=== PATIENT | male | born 1945 | race Two or more races ===

== ENCOUNTER 2020-09-17 03:40 | Inpatient (IN) | payer OTHER, MEDICAID ==
[~2020-09-17] VITALS: Ht 170.2 cm; Wt 92.7 kg
[2020-09-17] MEDS ORDERED: InsuLIN REG 1unit/0.01ml Soln (100units/ml) IV ONE ×2 (04:45→13:00)
[2020-09-17] MEDS ORDERED: methylPREDNISolone SOD SUCC 125 MG/2 ML VL IV ONE (04:45)
[2020-09-17 05:37] LABS: Basophils # (auto) 0 10 ^3/uL (0-0.2); Eosinophils # (auto) 0 10 ^3/uL (0-0.8); Hematocrit 34.4 % (41.0-53.0); Hemoglobin 11.7 g/dL (13.5-17.5); Lymphocytes # (auto) 0.7 10 ^3/uL (0.4-5.4); Lymphocytes % (auto) 3.8 % (10.0-50.0); Mean Corpuscular Hemoglobin 29.7 pg (28.0-32.0); Mean Corpuscular Hgb Conc. 34.1 g/dL (32.0-36.0); Monocytes # (auto) 0.7 10 ^3/uL (0-1.3); Monocytes % (auto) 3.9 % (0.0-12.0); Neutrophils # (auto) 16.3 10 ^3/uL (1.6-8.6); Neutrophils % (auto) 92.3 % (37.0-80.0); Nucleated Red Blood Cells % 0.2 %; Platelet Count (auto) 393 10^3/uL (140-450); Red Blood Cells 3.96 10^6/uL (4.5-5.90); Red Cell Distribution Width 16.7 % (11.8-14.3); White Blood Cell 17.6 10^3/uL (4.4-10.8)
[2020-09-17 05:52] LABS: Calcium 7.9 mg/dL (8.5-10.1); INR 1.01 (0.9-1.15); Partial Thromboplastin Time 33.9 sec (23.0-31.2); Potassium 3.1 mmol/L (3.5-5.1)
[2020-09-17 05:56] LABS: Albumin 1.8 g/dL (3.4-5.0); BUN/Creatinine Ratio 8.9
[2020-09-17 06:01] LABS: Bilirubin, Total 0.5 mg/dL (0.2-1.0); Total Protein 7.2 g/dL (6.4-8.2)
[2020-09-17] MEDS ORDERED: SUCCINYLCHOLINE CHLORIDE 20 MG/ML 10ML VIAL IV ONE ×2 (07:23→08:45)
[2020-09-17] MEDS ORDERED: ETOMIDATE (2MG/ML) 20ML VIAL IV ONE ×2 (07:23→08:45)
[2020-09-17] MEDS ORDERED: MIDAZOLAM DRIP 50 mg/50mL 50 ML IV ONE (07:24)
[2020-09-17 08:10] VITALS: BP 109/45
[2020-09-17] MEDS ORDERED: AZITHROMYCIN 500MG/ 250ML 250 ML IV ONE (08:15)
[2020-09-17] MEDS ORDERED: POTASSIUM CHL 20MEQ/100ML 200 ML IV PRN (08:15)
[2020-09-17] MEDS ORDERED: DEXTROSE (50%) 50ML SYRG IV PRN ×2 (08:15→09:45)
[2020-09-17] MEDS ORDERED: CEFEPIME 2 GM in SODIUM CHL 0.9% 50 ML IV ONE (08:15)
[2020-09-17] MEDS ORDERED: InsuLIN R (HUMAN) 100 UNITS in SODIUM CHL 0.9% 99 ML IV SCH (08:15)
[2020-09-17 08:44] LABS: Urine Bacteria MANY /hpf (None Seen); Urine Blood TRACE /uL (Negative); Urine Hyaline Cast FEW /lpf (0 - 2); Urine Specific Gravity 1.021 (1.001-1.035); Urine WBC 279 /hpf (0 - 3); Urine WBC Clumps PRESENT /hpf (None Seen)
[2020-09-17] MEDS ORDERED: SODIUM CHLORIDE 0.9% 1,000 ML IV ONE (08:45)
[2020-09-17] MEDS: MIDAZOLAM DRIP 50 mg/50mL 50 ML IV SCH (08:56)
[2020-09-17] MEDS ORDERED: NOREPINEPHRINE 8 MG/250ML KIT 250 ML IV ONE (09:09)
[2020-09-17] MEDS ORDERED: NITROGLYCERIN 0.4 MG SL TAB SL PRN (09:15)
[2020-09-17] MEDS: NOREPINEPHRINE 8 MG/250ML KIT 250 ML IV SCH (09:15)
[2020-09-17] MEDS ORDERED: ALBUTEROL SULF HFA 90MCG INH 200DOSE IN PRN (09:15)
[2020-09-17] MEDS ORDERED: MORPHINE SULF INJ 2 MG/ML SYRINGE 1ML IV PRN ×3 (09:15→09:45)
[2020-09-17] MEDS ORDERED: REMDESIVIR PER PHARMACY 0 ML IV SCH (09:15)
[2020-09-17] MEDS ORDERED: diphenhdrAMINE HCL 50 MG/1 ML VL IV PRN (09:15)
[2020-09-17] MEDS ORDERED: LACTULOSE 20Gm/30ML SOLN PO PRN (09:45)
[2020-09-17] MEDS ORDERED: ONDANSETRON HCL 4 MG/2 ML VIAL IV PRN (09:45)
[2020-09-17] MEDS ORDERED: SODIUM CHLORIDE 0.9% 1,000 ML IV SCH ×2 (09:45→12:15)
[2020-09-17] MEDS ORDERED: levoFLOXacin 500MG 100 ML IV ONE ×2 (09:45→10:00)
[2020-09-17 09:57] LABS: BUN/Creatinine Ratio 9.2; Calcium 7.7 mg/dL (8.5-10.1)
[2020-09-17] MEDS ORDERED: ENOXAPARIN SOD 40 MG/0.4 ML SYRINGE SC SCH ×2 (10:00)
[2020-09-17] MEDS ORDERED: levoFLOXacin 500MG 100 ML IV SCH (10:00)
[2020-09-17] MEDS ORDERED: BUDESONIDE (INHALATION) 180 MCG IH IN SCH (10:00)
[2020-09-17] MEDS ORDERED: FAMOTIDINE (10MG/ML) 2ML VL IV SCH ×2 (10:00)
[2020-09-17 10:10] VITALS: BP 123/73
[2020-09-17] MEDS: ACCU-CHEK COMFORT CURVE STRIP VI SCH ×9 (12:54→23:55)
[2020-09-17] MEDS: DexAMETHasone SOD PHOS 10MG/1ML VIAL INJ IV SCH (13:44)
[2020-09-17 13:55] VITALS: BP 119/45
[2020-09-17] MEDS: ASCORBIC ACID 1,000 MG TAB NG SCH (13:57)
[2020-09-17] MEDS: ZINC SULFATE 220mg CAP or TAB PO SCH (13:57)
[2020-09-17] MEDS: CHOLECALCIFEROL (VITD3) 2,000 UNIT CAP PO SCH (13:58)
[2020-09-17] MEDS: InsuLIN REG 1unit/0.01ml Soln (100units/ml) SC SCH ×4 (14:43→23:56)
[2020-09-17] MEDS: SODIUM CHLORIDE 0.9% 1,000 ML IV SCH (14:44)
[2020-09-17] MEDS: CLINDAMYCIN 600MG IV 50 ML IV SCH ×2 (14:44→22:12)
[2020-09-17 16:25] LABS: BUN/Creatinine Ratio 9.3; Calcium 7.2 mg/dL (8.5-10.1); Potassium 3.1 mmol/L (3.5-5.1)
[2020-09-17 18:05] VITALS: BP 123/43
[2020-09-17 22:21] VITALS: BP 125/43
[2020-09-17] MEDS: INSULIN LANTUS (GLARGINE) 1 /0.01ml (100units/ml) SC SCH (22:47)
[2020-09-18 00:02] LABS: Calcium 7.1 mg/dL (8.5-10.1); Potassium 4.4 mmol/L (3.5-5.1)
[2020-09-18 00:06] LABS: BUN/Creatinine Ratio 9.5
[2020-09-18] MEDS: SODIUM CHLORIDE 0.9% 1,000 ML IV SCH (00:20)
[2020-09-18 02:12] VITALS: BP 129/59
[2020-09-18 02:54] LABS: BUN/Creatinine Ratio 9.3; Calcium 7.3 mg/dL (8.5-10.1); Potassium 3.3 mmol/L (3.5-5.1)
[2020-09-18] MEDS: ACCU-CHEK COMFORT CURVE STRIP VI SCH ×5 (03:52→20:54)
[2020-09-18] MEDS: InsuLIN REG 1unit/0.01ml Soln (100units/ml) SC SCH ×5 (03:54→20:57)
[2020-09-18] MEDS: CLINDAMYCIN 600MG IV 50 ML IV SCH (06:00)
[2020-09-18] MEDS: INSULIN LANTUS (GLARGINE) 1 /0.01ml (100units/ml) SC SCH ×2 (06:43→21:06)
[2020-09-18 07:17] LABS: Basophils # (auto) 0 10 ^3/uL (0-0.2); Basophils % (auto) 0.1 % (0.0-2.0); Eosinophils # (auto) 0 10 ^3/uL (0-0.8); Hematocrit 31.9 % (41.0-53.0); Hemoglobin 10.7 g/dL (13.5-17.5); Lymphocytes # (auto) 0.4 10 ^3/uL (0.4-5.4); Lymphocytes % (auto) 1.8 % (10.0-50.0); Mean Corpuscular Hemoglobin 29.1 pg (28.0-32.0); Mean Corpuscular Hgb Conc. 33.4 g/dL (32.0-36.0); Monocytes # (auto) 0.7 10 ^3/uL (0-1.3); Neutrophils % (auto) 95.1 % (37.0-80.0); Nucleated Red Blood Cells % 0.6 %; Platelet Count (auto) 415 10^3/uL (140-450); Red Blood Cells 3.67 10^6/uL (4.5-5.90); Red Cell Distribution Width 16.7 % (11.8-14.3); White Blood Cell 23.2 10^3/uL (4.4-10.8)
[2020-09-18 07:21] VITALS: BP 124/58
[2020-09-18 07:37] LABS: Albumin 1.5 g/dL (3.4-5.0); Calcium 7.4 mg/dL (8.5-10.1); Potassium 3.2 mmol/L (3.5-5.1)
[2020-09-18 07:41] LABS: BUN/Creatinine Ratio 9.6
[2020-09-18 07:43] LABS: Bilirubin, Total 0.4 mg/dL (0.2-1.0); Total Protein 6.4 g/dL (6.4-8.2)
[2020-09-18] MEDS: MIDAZOLAM DRIP 50 mg/50mL 50 ML IV SCH (08:45)
[2020-09-18] MEDS: NOREPINEPHRINE 8 MG/250ML KIT 250 ML IV SCH (09:04)
[2020-09-18] MEDS: fentaNYL Drip 2500mCg/250mlNS 250 ML IV SCH (09:04)
[2020-09-18] MEDS: ASCORBIC ACID 1,000 MG TAB NG SCH (10:00)
[2020-09-18] MEDS: ENOXAPARIN SOD 40 MG/0.4 ML SYRINGE SC SCH (10:00)
[2020-09-18] MEDS: levoFLOXacin 500MG 100 ML IV SCH (10:00)
[2020-09-18] MEDS: FAMOTIDINE (10MG/ML) 2ML VL IV SCH (10:00)
[2020-09-18] MEDS: CHOLECALCIFEROL (VITD3) 2,000 UNIT CAP PO SCH (10:00)
[2020-09-18] MEDS: ZINC SULFATE 220mg CAP or TAB PO SCH (10:00)
[2020-09-18] MEDS: DexAMETHasone SOD PHOS 10MG/1ML VIAL INJ IV SCH (10:00)
[2020-09-18] MEDS ORDERED: VANCOMYCIN PER PHARMACY 0 MG IV SCH (12:00)
[2020-09-18] MEDS ORDERED: VANCOMYCIN 1GM/250ML 250 ML IV ONE (14:00)
[2020-09-18 14:38] VITALS: BP 115/52
[2020-09-18 18:55] VITALS: BP 96/52
[2020-09-18 22:40] VITALS: BP 104/52
[2020-09-19] MEDS: ACCU-CHEK COMFORT CURVE STRIP VI SCH ×7 (01:04→23:34)
[2020-09-19] MEDS: InsuLIN REG 1unit/0.01ml Soln (100units/ml) SC SCH ×7 (01:07→23:36)
[2020-09-19 02:15] VITALS: BP 110/59
[2020-09-19] MEDS: INSULIN LANTUS (GLARGINE) 1 /0.01ml (100units/ml) SC SCH ×2 (07:00→22:00)
[2020-09-19 07:06] VITALS: BP 106/56
[2020-09-19 08:20] LABS: Basophils # (auto) 0 10 ^3/uL (0-0.2); Basophils % (auto) 0.2 % (0.0-2.0); Eosinophils # (auto) 0 10 ^3/uL (0-0.8); Hematocrit 28.7 % (41.0-53.0); Hemoglobin 9.7 g/dL (13.5-17.5); Lymphocytes # (auto) 0.4 10 ^3/uL (0.4-5.4); Lymphocytes % (auto) 2.4 % (10.0-50.0); Mean Corpuscular Hemoglobin 29.6 pg (28.0-32.0); Mean Corpuscular Hgb Conc. 33.8 g/dL (32.0-36.0); Mean Corpuscular Volume 87.5 fL (80.0-100.0); Monocytes # (auto) 0.5 10 ^3/uL (0-1.3); Monocytes % (auto) 3.6 % (0.0-12.0); Neutrophils # (auto) 14.2 10 ^3/uL (1.6-8.6); Neutrophils % (auto) 93.8 % (37.0-80.0); Nucleated Red Blood Cells % 0.5 %; Platelet Count (auto) 292 10^3/uL (140-450); Red Blood Cells 3.28 10^6/uL (4.5-5.90); Red Cell Distribution Width 16.7 % (11.8-14.3); White Blood Cell 15.1 10^3/uL (4.4-10.8)
[2020-09-19 08:38] LABS: Potassium 3.8 mmol/L (3.5-5.1)
[2020-09-19] MEDS: fentaNYL Drip 2500mCg/250mlNS 250 ML IV SCH (08:45)
[2020-09-19] MEDS: MIDAZOLAM DRIP 50 mg/50mL 50 ML IV SCH (08:45)
[2020-09-19 08:46] LABS: Albumin 1.2 g/dL (3.4-5.0); BUN/Creatinine Ratio 10.5; Bilirubin, Total 0.4 mg/dL (0.2-1.0)
[2020-09-19] MEDS: NOREPINEPHRINE 8 MG/250ML KIT 250 ML IV SCH (08:46)
[2020-09-19] MEDS: ASCORBIC ACID 1,000 MG TAB NG SCH (09:53)
[2020-09-19] MEDS: FAMOTIDINE (10MG/ML) 2ML VL IV SCH (09:53)
[2020-09-19] MEDS: DexAMETHasone SOD PHOS 10MG/1ML VIAL INJ IV SCH (09:53)
[2020-09-19] MEDS: ZINC SULFATE 220mg CAP or TAB PO SCH (09:53)
[2020-09-19] MEDS: CHOLECALCIFEROL (VITD3) 2,000 UNIT CAP PO SCH (09:53)
[2020-09-19] MEDS: ENOXAPARIN SOD 40 MG/0.4 ML SYRINGE SC SCH (09:53)
[2020-09-19 11:19] VITALS: BP 98/49
[2020-09-19] MEDS ORDERED: BUMETANIDE 2.5mg/10ml (0.25 mg/ml) INJ IV ONE (12:15)
[2020-09-19] MEDS ORDERED: VANCOMYCIN 500 MG in D5W 5% 100 ML IV ONE (14:00)
[2020-09-19 14:11] VITALS: BP 104/58
[2020-09-19 18:28] VITALS: BP 107/60
[2020-09-19 21:35] VITALS: BP 99/47
[2020-09-20] VITALS (11 sets, daily range): BP systolic 105–118; BP diastolic 56–63
[2020-09-20] MEDS: InsuLIN REG 1unit/0.01ml Soln (100units/ml) SC SCH ×5 (04:38→20:00)
[2020-09-20] MEDS: ACCU-CHEK COMFORT CURVE STRIP VI SCH ×5 (04:40→20:00)
[2020-09-20] MEDS: INSULIN LANTUS (GLARGINE) 1 /0.01ml (100units/ml) SC SCH ×2 (07:00→22:00)
[2020-09-20 07:10] LABS: Basophils # (auto) 0 10 ^3/uL (0-0.2); Basophils % (auto) 0.1 % (0.0-2.0); Eosinophils # (auto) 0 10 ^3/uL (0-0.8); Hematocrit 29.2 % (41.0-53.0); Lymphocytes # (auto) 0.4 10 ^3/uL (0.4-5.4); Lymphocytes % (auto) 2.7 % (10.0-50.0); Mean Corpuscular Hemoglobin 29.8 pg (28.0-32.0); Mean Corpuscular Hgb Conc. 34.4 g/dL (32.0-36.0); Mean Corpuscular Volume 86.6 fL (80.0-100.0); Monocytes # (auto) 0.6 10 ^3/uL (0-1.3); Monocytes % (auto) 3.6 % (0.0-12.0); Neutrophils # (auto) 14.3 10 ^3/uL (1.6-8.6); Neutrophils % (auto) 93.6 % (37.0-80.0); Nucleated Red Blood Cells % 0.5 %; Platelet Count (auto) 304 10^3/uL (140-450); Red Blood Cells 3.37 10^6/uL (4.5-5.90); Red Cell Distribution Width 16.7 % (11.8-14.3); White Blood Cell 15.3 10^3/uL (4.4-10.8)
[2020-09-20 07:39] LABS: Albumin 1.2 g/dL (3.4-5.0); Calcium 6.7 mg/dL (8.5-10.1); Potassium 4.2 mmol/L (3.5-5.1)
[2020-09-20 07:44] LABS: BUN/Creatinine Ratio 12.9; Bilirubin, Total 0.6 mg/dL (0.2-1.0); Phosphorus 8.6 mg/dL (2.5-4.90); Total Protein 5.8 g/dL (6.4-8.2)
[2020-09-20 08:02] LABS: % Iron Saturation 21.9 % (20-55)
[2020-09-20] MEDS: fentaNYL Drip 2500mCg/250mlNS 250 ML IV SCH (08:30)
[2020-09-20] MEDS: MIDAZOLAM DRIP 50 mg/50mL 50 ML IV SCH (08:45)
[2020-09-20] MEDS: FLUCONAZOLE 200MG/100ML 100 ML IV SCH ×3 (09:00→09:58)
[2020-09-20] MEDS: NOREPINEPHRINE 8 MG/250ML KIT 250 ML IV SCH (09:30)
[2020-09-20] MEDS: FAMOTIDINE (10MG/ML) 2ML VL IV SCH (09:38)
[2020-09-20] MEDS: ZINC SULFATE 220mg CAP or TAB PO SCH (09:38)
[2020-09-20] MEDS: ASCORBIC ACID 1,000 MG TAB NG SCH (09:38)
[2020-09-20] MEDS: levoFLOXacin 500MG 100 ML IV SCH (09:38)
[2020-09-20] MEDS: DexAMETHasone SOD PHOS 10MG/1ML VIAL INJ IV SCH (09:38)
[2020-09-20] MEDS: CHOLECALCIFEROL (VITD3) 2,000 UNIT CAP PO SCH (09:39)
[2020-09-20] MEDS: ENOXAPARIN SOD 40 MG/0.4 ML SYRINGE SC SCH (09:39)
[2020-09-20] MEDS ORDERED: Glucerna 1.2 Cal 1Liter BOTTLE GT SCH (11:30)
[2020-09-20] MEDS: METOCLOPRAMIDE HCL 5MG/ml INJ 2ml VIAL IV SCH ×2 (14:00→22:00)
[2020-09-20] MEDS ORDERED: EPOETIN ALFA 10,000 UNIT/1 ML VIAL SC ONE (16:15)
[2020-09-20] MEDS ORDERED: PERITONEAL DIALYSIS 4.25% SOLN 2,000 ML IP ONE (16:15)
[2020-09-21] VITALS (96 sets, daily range): BP systolic 108–130; BP diastolic 57–69
[2020-09-21] MEDS: ACCU-CHEK COMFORT CURVE STRIP VI SCH ×6 (01:30→20:00)
[2020-09-21] MEDS: InsuLIN REG 1unit/0.01ml Soln (100units/ml) SC SCH ×6 (01:30→20:00)
[2020-09-21] MEDS: MIDAZOLAM DRIP 50 mg/50mL 50 ML IV SCH ×5 (04:52→22:00)
[2020-09-21 05:01] LABS: Basophils # (auto) 0 10 ^3/uL (0-0.2); Basophils % (auto) 0.1 % (0.0-2.0); Eosinophils # (auto) 0 10 ^3/uL (0-0.8); Hematocrit 28.3 % (41.0-53.0); Hemoglobin 9.7 g/dL (13.5-17.5); Lymphocytes # (auto) 0.3 10 ^3/uL (0.4-5.4); Mean Corpuscular Hemoglobin 29.8 pg (28.0-32.0); Mean Corpuscular Hgb Conc. 34.1 g/dL (32.0-36.0); Mean Corpuscular Volume 87.2 fL (80.0-100.0); Monocytes # (auto) 0.5 10 ^3/uL (0-1.3); Monocytes % (auto) 3.4 % (0.0-12.0); Neutrophils # (auto) 14.4 10 ^3/uL (1.6-8.6); Neutrophils % (auto) 94.5 % (37.0-80.0); Nucleated Red Blood Cells % 0.3 %; Platelet Count (auto) 279 10^3/uL (140-450); Red Blood Cells 3.24 10^6/uL (4.5-5.90); Red Cell Distribution Width 16.5 % (11.8-14.3); White Blood Cell 15.2 10^3/uL (4.4-10.8)
[2020-09-21 05:35] LABS: Calcium 6.5 mg/dL (8.5-10.1); Potassium 4.7 mmol/L (3.5-5.1)
[2020-09-21 05:51] LABS: Phosphorus 9.4 mg/dL (2.5-4.90)
[2020-09-21] MEDS: INSULIN LANTUS (GLARGINE) 1 /0.01ml (100units/ml) SC SCH ×2 (06:27→22:00)
[2020-09-21] MEDS: METOCLOPRAMIDE HCL 5MG/ml INJ 2ml VIAL IV SCH (06:27)
[2020-09-21] MEDS: NOREPINEPHRINE 8 MG/250ML KIT 250 ML IV SCH (09:30)
[2020-09-21] MEDS: LACTULOSE 20Gm/30ML SOLN NG SCH (10:00)
[2020-09-21] MEDS: FAMOTIDINE (10MG/ML) 2ML VL IV SCH (10:00)
[2020-09-21] MEDS: ENOXAPARIN SOD 40 MG/0.4 ML SYRINGE SC SCH (10:00)
[2020-09-21] MEDS: CHOLECALCIFEROL (VITD3) 2,000 UNIT CAP PO SCH (10:00)
[2020-09-21] MEDS: DexAMETHasone SOD PHOS 10MG/1ML VIAL INJ IV SCH (10:00)
[2020-09-21] MEDS: ASCORBIC ACID 1,000 MG TAB NG SCH (10:00)
[2020-09-21] MEDS: ZINC SULFATE 220mg CAP or TAB PO SCH (10:00)
[2020-09-21] MEDS: PERITONEAL DIALYSIS 2.5% SOLN 2,000 ML IP SCH ×4 (10:00→22:00)
[2020-09-21] MEDS: FLUCONAZOLE 200MG/100ML 100 ML IV SCH (10:00)
[2020-09-21] MEDS ORDERED: VANCOMYCIN 500 MG in D5W 5% 100 ML IV SCH (14:00)
[2020-09-21] MEDS ORDERED: MEROPENEM 500MG IVPB 50 ML IV SCH (19:00)
[2020-09-21] MEDS: MEROPENEM 500MG IVPB 50 ML IV SCH (20:00)
[2020-09-21] MEDS ORDERED: EPOETIN ALFA 10,000 UNIT/1 ML VIAL SC ONE (21:00)
[2020-09-21] MEDS: ENOXAPARIN SOD 60 MG/0.6 ML SYRINGE SC SCH (22:00)
[2020-09-21] MEDS: fentaNYL Drip 2500mCg/250mlNS 250 ML IV SCH ×2 (22:00)
[2020-09-21] MEDS: LINEZOLID 600MG/300ML 300 ML IV SCH (22:00)
[2020-09-22] VITALS (97 sets, daily range): BP systolic 116–145; BP diastolic 59–77
[2020-09-22] MEDS: PERITONEAL DIALYSIS 2.5% SOLN 2,000 ML IP SCH ×5 (02:00→22:30)
[2020-09-22] MEDS: MIDAZOLAM DRIP 50 mg/50mL 50 ML IV SCH ×2 (03:13→11:25)
[2020-09-22] MEDS: InsuLIN REG 1unit/0.01ml Soln (100units/ml) SC SCH ×7 (04:00→23:23)
[2020-09-22] MEDS: ACCU-CHEK COMFORT CURVE STRIP VI SCH ×7 (04:00→23:23)
[2020-09-22 05:52] LABS: Basophils # (auto) 0 10 ^3/uL (0-0.2); Basophils % (auto) 0.2 % (0.0-2.0); Eosinophils # (auto) 0 10 ^3/uL (0-0.8); Hematocrit 29.4 % (41.0-53.0); Hemoglobin 9.8 g/dL (13.5-17.5); Lymphocytes # (auto) 0.2 10 ^3/uL (0.4-5.4); Lymphocytes % (auto) 1.4 % (10.0-50.0); Mean Corpuscular Hemoglobin 29.2 pg (28.0-32.0); Mean Corpuscular Hgb Conc. 33.3 g/dL (32.0-36.0); Mean Corpuscular Volume 87.7 fL (80.0-100.0); Monocytes # (auto) 0.6 10 ^3/uL (0-1.3); Monocytes % (auto) 4.5 % (0.0-12.0); Neutrophils # (auto) 13.6 10 ^3/uL (1.6-8.6); Neutrophils % (auto) 93.9 % (37.0-80.0); Nucleated Red Blood Cells % 0.1 %; Platelet Count (auto) 281 10^3/uL (140-450); Red Blood Cells 3.35 10^6/uL (4.5-5.90); Red Cell Distribution Width 16.1 % (11.8-14.3); White Blood Cell 14.4 10^3/uL (4.4-10.8)
[2020-09-22] MEDS: CALCIUM ACETATE 667 MG CAP NG SCH ×2 (06:00→23:19)
[2020-09-22 06:02] LABS: Potassium 4.7 mmol/L (3.5-5.1)
[2020-09-22 06:07] LABS: BUN/Creatinine Ratio 15.4; Calcium 6.3 mg/dL (8.5-10.1)
[2020-09-22] MEDS: INSULIN LANTUS (GLARGINE) 1 /0.01ml (100units/ml) SC SCH ×2 (07:00→22:00)
[2020-09-22] MEDS: Nepro With Carb Steady 1 Liter Bottle GT SCH (08:31)
[2020-09-22] MEDS: FLUCONAZOLE 200MG/100ML 100 ML IV SCH (08:58)
[2020-09-22] MEDS ORDERED: levoFLOXacin 250MG 50 ML IV SCH (09:00)
[2020-09-22] MEDS: NOREPINEPHRINE 8 MG/250ML KIT 250 ML IV SCH (09:30)
[2020-09-22] MEDS: DexAMETHasone SOD PHOS 10MG/1ML VIAL INJ IV SCH (09:59)
[2020-09-22] MEDS: ZINC SULFATE 220mg CAP or TAB PO SCH (09:59)
[2020-09-22] MEDS: LACTULOSE 20Gm/30ML SOLN NG SCH (09:59)
[2020-09-22] MEDS: CHOLECALCIFEROL (VITD3) 2,000 UNIT CAP PO SCH (09:59)
[2020-09-22] MEDS: ASCORBIC ACID 1,000 MG TAB NG SCH (09:59)
[2020-09-22] MEDS: FAMOTIDINE (10MG/ML) 2ML VL IV SCH (09:59)
[2020-09-22] MEDS: ENOXAPARIN SOD 60 MG/0.6 ML SYRINGE SC SCH ×2 (10:00→22:00)
[2020-09-22] MEDS: LINEZOLID 600MG/300ML 300 ML IV SCH ×2 (10:37→22:00)
[2020-09-22] MEDS ORDERED: BUMETANIDE 2.5mg/10ml (0.25 mg/ml) INJ IV ONE (12:15)
[2020-09-22] MEDS: MEROPENEM 500MG IVPB 50 ML IV SCH (20:00)
[2020-09-22] MEDS: BUMETANIDE 2.5mg/10ml (0.25 mg/ml) INJ IV SCH (22:00)
[2020-09-23] VITALS (89 sets, daily range): BP systolic 111–155; BP diastolic 50–84
[2020-09-23] MEDS: PERITONEAL DIALYSIS 2.5% SOLN 2,000 ML IP SCH ×6 (02:30→22:47)
[2020-09-23] MEDS: ACCU-CHEK COMFORT CURVE STRIP VI SCH ×5 (03:38→20:00)
[2020-09-23] MEDS: InsuLIN REG 1unit/0.01ml Soln (100units/ml) SC SCH ×5 (03:38→20:00)
[2020-09-23 05:43] LABS: Potassium 5.5 mmol/L (3.5-5.1)
[2020-09-23 05:49] LABS: BUN/Creatinine Ratio 17.2; Calcium 6.2 mg/dL (8.5-10.1)
[2020-09-23] MEDS: CALCIUM ACETATE 667 MG CAP NG SCH ×3 (06:00→18:00)
[2020-09-23] MEDS: BUMETANIDE 2.5mg/10ml (0.25 mg/ml) INJ IV SCH ×2 (06:00→18:30)
[2020-09-23] MEDS: INSULIN LANTUS (GLARGINE) 1 /0.01ml (100units/ml) SC SCH ×2 (06:30→22:00)
[2020-09-23] MEDS ORDERED: BUMETANIDE 2.5mg/10ml (0.25 mg/ml) INJ IV SCH (10:00)
[2020-09-23] MEDS: fentaNYL Drip 2500mCg/250mlNS 250 ML IV SCH (10:47)
[2020-09-23] MEDS: NOREPINEPHRINE 8 MG/250ML KIT 250 ML IV SCH (10:48)
[2020-09-23] MEDS: DexAMETHasone SOD PHOS 10MG/1ML VIAL INJ IV SCH (10:48)
[2020-09-23] MEDS: LINEZOLID 600MG/300ML 300 ML IV SCH (10:49)
[2020-09-23] MEDS: ASCORBIC ACID 1,000 MG TAB NG SCH (10:51)
[2020-09-23] MEDS: CHOLECALCIFEROL (VITD3) 2,000 UNIT CAP PO SCH (10:51)
[2020-09-23] MEDS: ZINC SULFATE 220mg CAP or TAB PO SCH (10:51)
[2020-09-23] MEDS: LACTULOSE 20Gm/30ML SOLN NG SCH (10:51)
[2020-09-23] MEDS: FAMOTIDINE (10MG/ML) 2ML VL IV SCH (10:51)
[2020-09-23] MEDS: ENOXAPARIN SOD 60 MG/0.6 ML SYRINGE SC SCH ×2 (10:52→22:50)
[2020-09-23] MEDS ORDERED: CATHFLO ACTIVASE (ALTEPLASE) 2 MG VIAL IV ONE (12:00)
[2020-09-23] MEDS: FLUCONAZOLE 200MG/100ML 100 ML IV SCH (12:00)
[2020-09-23] MEDS: MEROPENEM 500MG IVPB 50 ML IV SCH (22:01)
[2020-09-24] VITALS (95 sets, daily range): BP systolic 109–153; BP diastolic 57–83
[2020-09-24] MEDS: LINEZOLID 600MG/300ML 300 ML IV SCH ×2 (00:47→08:49)
[2020-09-24] MEDS: InsuLIN REG 1unit/0.01ml Soln (100units/ml) SC SCH ×5 (00:59→18:00)
[2020-09-24] MEDS: CALCIUM ACETATE 667 MG CAP NG SCH ×4 (01:03→17:33)
[2020-09-24] MEDS: MIDAZOLAM DRIP 50 mg/50mL 50 ML IV SCH ×3 (02:00→08:06)
[2020-09-24] MEDS: PERITONEAL DIALYSIS 2.5% SOLN 2,000 ML IP SCH ×6 (02:07→22:48)
[2020-09-24] MEDS: ACCU-CHEK COMFORT CURVE STRIP VI SCH ×6 (03:47→18:21)
[2020-09-24 05:37] LABS: Potassium 4.1 mmol/L (3.5-5.1)
[2020-09-24] MEDS: BUMETANIDE 2.5mg/10ml (0.25 mg/ml) INJ IV SCH ×2 (05:40→18:22)
[2020-09-24 05:52] LABS: BUN/Creatinine Ratio 17.6; Calcium 6.2 mg/dL (8.5-10.1)
[2020-09-24 06:01] LABS: Basophils # (auto) 0.2 10 ^3/uL (0-0.2); Basophils % (auto) 1.3 % (0.0-2.0); Eosinophils # (auto) 0.2 10 ^3/uL (0-0.8); Eosinophils % (auto) 1.4 % (0.0-7.0); Hematocrit 32.3 % (41.0-53.0); Hemoglobin 11.1 g/dL (13.5-17.5); Lymphocytes # (auto) 0.4 10 ^3/uL (0.4-5.4); Mean Corpuscular Hemoglobin 30.3 pg (28.0-32.0); Mean Corpuscular Hgb Conc. 34.2 g/dL (32.0-36.0); Mean Corpuscular Volume 88.6 fL (80.0-100.0); Monocytes # (auto) 0.2 10 ^3/uL (0-1.3); Monocytes % (auto) 1.4 % (0.0-12.0); Neutrophils # (auto) 16.7 10 ^3/uL (1.6-8.6); Neutrophils % (auto) 93.9 % (37.0-80.0); Nucleated Red Blood Cells % 0.1 %; Platelet Count (auto) 129 10^3/uL (140-450); Red Blood Cells 3.65 10^6/uL (4.5-5.90); Red Cell Distribution Width 16.7 % (11.8-14.3); White Blood Cell 17.8 10^3/uL (4.4-10.8)
[2020-09-24] MEDS: INSULIN LANTUS (GLARGINE) 1 /0.01ml (100units/ml) SC SCH ×2 (06:36→23:35)
[2020-09-24] MEDS: fentaNYL Drip 2500mCg/250mlNS 250 ML IV SCH ×2 (08:30→22:40)
[2020-09-24] MEDS: FAMOTIDINE (10MG/ML) 2ML VL IV SCH (08:48)
[2020-09-24] MEDS: DexAMETHasone SOD PHOS 10MG/1ML VIAL INJ IV SCH (08:48)
[2020-09-24] MEDS: ZINC SULFATE 220mg CAP or TAB PO SCH (08:49)
[2020-09-24] MEDS: ASCORBIC ACID 1,000 MG TAB NG SCH (08:49)
[2020-09-24] MEDS: LACTULOSE 20Gm/30ML SOLN NG SCH (08:49)
[2020-09-24] MEDS: CHOLECALCIFEROL (VITD3) 2,000 UNIT CAP PO SCH (08:49)
[2020-09-24] MEDS: NOREPINEPHRINE 8 MG/250ML KIT 250 ML IV SCH (09:30)
[2020-09-24] MEDS: ENOXAPARIN SOD 60 MG/0.6 ML SYRINGE SC SCH ×2 (10:00→22:51)
[2020-09-24] MEDS ORDERED: DEXTROSE (50%) 50ML SYRG IV PRN (18:00)
[2020-09-25] VITALS (96 sets, daily range): BP systolic 120–151; BP diastolic 54–81
[2020-09-25] MEDS: InsuLIN REG 1unit/0.01ml Soln (100units/ml) SC SCH ×4 (02:26→18:00)
[2020-09-25] MEDS: CALCIUM ACETATE 667 MG CAP NG SCH ×4 (02:28→18:00)
[2020-09-25] MEDS: PERITONEAL DIALYSIS 2.5% SOLN 2,000 ML IP SCH ×6 (02:29→22:00)
[2020-09-25] MEDS: ACCU-CHEK COMFORT CURVE STRIP VI SCH ×4 (06:00→18:00)
[2020-09-25] MEDS: BUMETANIDE 2.5mg/10ml (0.25 mg/ml) INJ IV SCH ×2 (06:38→18:00)
[2020-09-25] MEDS: INSULIN LANTUS (GLARGINE) 1 /0.01ml (100units/ml) SC SCH ×2 (06:47→22:35)
[2020-09-25] MEDS: NOREPINEPHRINE 8 MG/250ML KIT 250 ML IV SCH (09:30)
[2020-09-25] MEDS: cefTRIAXone 1GM/50ML D5W 50 ML IV SCH (09:45)
[2020-09-25] MEDS: ZINC SULFATE 220mg CAP or TAB PO SCH (10:00)
[2020-09-25] MEDS: ASCORBIC ACID 1,000 MG TAB NG SCH (10:00)
[2020-09-25] MEDS: FAMOTIDINE (10MG/ML) 2ML VL IV SCH (10:00)
[2020-09-25] MEDS: CHOLECALCIFEROL (VITD3) 2,000 UNIT CAP PO SCH (10:00)
[2020-09-25] MEDS: ENOXAPARIN SOD 60 MG/0.6 ML SYRINGE SC SCH ×2 (10:00→22:33)
[2020-09-25] MEDS: DexAMETHasone SOD PHOS 10MG/1ML VIAL INJ IV SCH (10:00)
[2020-09-26] VITALS (90 sets, daily range): BP systolic 92–160; BP diastolic 35–78
[2020-09-26] MEDS: CALCIUM ACETATE 667 MG CAP NG SCH ×3 (00:43→17:57)
[2020-09-26] MEDS: InsuLIN REG 1unit/0.01ml Soln (100units/ml) SC SCH ×4 (00:43→18:00)
[2020-09-26] MEDS: fentaNYL Drip 2500mCg/250mlNS 250 ML IV SCH (00:46)
[2020-09-26] MEDS: PERITONEAL DIALYSIS 2.5% SOLN 2,000 ML IP SCH ×6 (02:05→21:34)
[2020-09-26 06:20] LABS: Hematocrit 29.8 % (41.0-53.0); Hemoglobin 9.8 g/dL (13.5-17.5); Mean Corpuscular Hemoglobin 28.9 pg (28.0-32.0); Mean Corpuscular Volume 87.5 fL (80.0-100.0); Platelet Count (auto) 259 10^3/uL (140-450); Red Cell Distribution Width 16.3 % (11.8-14.3); White Blood Cell 18.2 10^3/uL (4.4-10.8)
[2020-09-26] MEDS: ACCU-CHEK COMFORT CURVE STRIP VI SCH ×5 (06:26→23:47)
[2020-09-26] MEDS: BUMETANIDE 2.5mg/10ml (0.25 mg/ml) INJ IV SCH ×2 (06:41→17:57)
[2020-09-26 06:42] LABS: Basophils % (manual) 0 (0.0-2.0); Blast Cells 0; Eosinophils % (manual) 0 (0-7); Lymphocytes % (manual) 0 (10.0-50.0); Metamyelocytes % 0; Myelocytes % 0; Promyelocytes % 0; Reactive Lymphocytes 0
[2020-09-26] MEDS: INSULIN LANTUS (GLARGINE) 1 /0.01ml (100units/ml) SC SCH ×2 (06:43→21:16)
[2020-09-26 06:52] LABS: BUN/Creatinine Ratio 19.4; Calcium 6.6 mg/dL (8.5-10.1)
[2020-09-26 06:59] LABS: Potassium 2.8 mmol/L (3.5-5.1)
[2020-09-26 07:59] LABS: Band Neutrophils % (manual) 1; Monocytes % (manual) 2 (0-12)
[2020-09-26] MEDS ORDERED: POTASSIUM EFFERVESENT TAB 25 MEQ GT ONE (08:30)
[2020-09-26] MEDS: POTASSIUM CHL 20MEQ/100ML 100 ML IV SCH ×3 (09:00→12:30)
[2020-09-26] MEDS: cefTRIAXone 1GM/50ML D5W 50 ML IV SCH (09:00)
[2020-09-26] MEDS: ASCORBIC ACID 1,000 MG TAB NG SCH (10:00)
[2020-09-26] MEDS: FAMOTIDINE (10MG/ML) 2ML VL IV SCH (10:00)
[2020-09-26] MEDS: ZINC SULFATE 220mg CAP or TAB PO SCH (10:00)
[2020-09-26] MEDS: CHOLECALCIFEROL (VITD3) 2,000 UNIT CAP PO SCH (10:00)
[2020-09-26] MEDS: DexAMETHasone SOD PHOS 10MG/1ML VIAL INJ IV SCH (10:00)
[2020-09-26] MEDS: ENOXAPARIN SOD 60 MG/0.6 ML SYRINGE SC SCH ×2 (10:00→21:35)
[2020-09-26] MEDS ORDERED: POTASSIUM EFFERVESENT TAB 25 MEQ ONE (10:36)
[2020-09-26] MEDS: MIDAZOLAM DRIP 50 mg/50mL 50 ML IV SCH (11:00)
[2020-09-26] MEDS: NOREPINEPHRINE 8 MG/250ML KIT 250 ML IV SCH (11:51)
[2020-09-27] VITALS (97 sets, daily range): BP systolic 117–173; BP diastolic 61–83
[2020-09-27] MEDS: CALCIUM ACETATE 667 MG CAP NG SCH ×5 (00:54→23:52)
[2020-09-27] MEDS: fentaNYL Drip 2500mCg/250mlNS 250 ML IV SCH ×3 (01:00→23:31)
[2020-09-27] MEDS: PERITONEAL DIALYSIS 2.5% SOLN 2,000 ML IP SCH ×6 (02:21→22:01)
[2020-09-27] MEDS: BUMETANIDE 2.5mg/10ml (0.25 mg/ml) INJ IV SCH ×2 (05:40→18:00)
[2020-09-27] MEDS: ACCU-CHEK COMFORT CURVE STRIP VI SCH ×4 (05:41→23:52)
[2020-09-27] MEDS: InsuLIN REG 1unit/0.01ml Soln (100units/ml) SC SCH ×5 (06:00→23:53)
[2020-09-27 06:12] LABS: Basophils # (auto) 0 10 ^3/uL (0-0.2); Basophils % (auto) 0.3 % (0.0-2.0); Eosinophils # (auto) 0 10 ^3/uL (0-0.8); Hematocrit 30.2 % (41.0-53.0); Hemoglobin 10.2 g/dL (13.5-17.5); Lymphocytes # (auto) 0.2 10 ^3/uL (0.4-5.4); Lymphocytes % (auto) 1.4 % (10.0-50.0); Mean Corpuscular Hemoglobin 29.5 pg (28.0-32.0); Mean Corpuscular Hgb Conc. 33.7 g/dL (32.0-36.0); Mean Corpuscular Volume 87.4 fL (80.0-100.0); Monocytes # (auto) 0.9 10 ^3/uL (0-1.3); Monocytes % (auto) 5.5 % (0.0-12.0); Neutrophils # (auto) 15.7 10 ^3/uL (1.6-8.6); Neutrophils % (auto) 92.8 % (37.0-80.0); Platelet Count (auto) 250 10^3/uL (140-450); Red Blood Cells 3.45 10^6/uL (4.5-5.90); Red Cell Distribution Width 16.7 % (11.8-14.3); White Blood Cell 16.9 10^3/uL (4.4-10.8)
[2020-09-27 06:28] LABS: BUN/Creatinine Ratio 20.3; Calcium 7.2 mg/dL (8.5-10.1)
[2020-09-27] MEDS: INSULIN LANTUS (GLARGINE) 1 /0.01ml (100units/ml) SC SCH ×2 (06:48→22:02)
[2020-09-27] MEDS: MIDAZOLAM DRIP 50 mg/50mL 50 ML IV SCH (08:45)
[2020-09-27] MEDS: cefTRIAXone 1GM/50ML D5W 50 ML IV SCH (09:09)
[2020-09-27] MEDS: NOREPINEPHRINE 8 MG/250ML KIT 250 ML IV SCH (09:30)
[2020-09-27] MEDS: CHOLECALCIFEROL (VITD3) 2,000 UNIT CAP PO SCH (10:00)
[2020-09-27] MEDS: DexAMETHasone SOD PHOS 10MG/1ML VIAL INJ IV SCH (10:00)
[2020-09-27] MEDS: ASCORBIC ACID 1,000 MG TAB NG SCH (10:00)
[2020-09-27] MEDS: ZINC SULFATE 220mg CAP or TAB PO SCH (10:00)
[2020-09-27] MEDS: FAMOTIDINE (10MG/ML) 2ML VL IV SCH (10:00)
[2020-09-27] MEDS: ENOXAPARIN SOD 60 MG/0.6 ML SYRINGE SC SCH ×2 (10:00→22:02)
[2020-09-27] MEDS: POTASSIUM EFFERVESENT TAB 25 MEQ GT SCH (10:00)
[2020-09-28] VITALS (95 sets, daily range): BP systolic 121–179; BP diastolic 54–88
[2020-09-28] MEDS: PERITONEAL DIALYSIS 2.5% SOLN 2,000 ML IP SCH ×6 (02:11→22:00)
[2020-09-28] MEDS: Nepro With Carb Steady 1 Liter Bottle GT SCH (03:20)
[2020-09-28] MEDS: ACCU-CHEK COMFORT CURVE STRIP VI SCH ×4 (06:02→22:06)
[2020-09-28] MEDS: BUMETANIDE 2.5mg/10ml (0.25 mg/ml) INJ IV SCH ×2 (06:03→18:00)
[2020-09-28] MEDS: CALCIUM ACETATE 667 MG CAP NG SCH ×4 (06:03→22:05)
[2020-09-28] MEDS: InsuLIN REG 1unit/0.01ml Soln (100units/ml) SC SCH ×4 (06:05→22:05)
[2020-09-28] MEDS: INSULIN LANTUS (GLARGINE) 1 /0.01ml (100units/ml) SC SCH ×2 (06:06→22:00)
[2020-09-28] MEDS: cefTRIAXone 1GM/50ML D5W 50 ML IV SCH (09:00)
[2020-09-28] MEDS: NOREPINEPHRINE 8 MG/250ML KIT 250 ML IV SCH (09:30)
[2020-09-28] MEDS: ASCORBIC ACID 1,000 MG TAB NG SCH (10:00)
[2020-09-28] MEDS: DexAMETHasone SOD PHOS 10MG/1ML VIAL INJ IV SCH (10:00)
[2020-09-28] MEDS: ZINC SULFATE 220mg CAP or TAB PO SCH (10:00)
[2020-09-28] MEDS: POTASSIUM EFFERVESENT TAB 25 MEQ GT SCH (10:00)
[2020-09-28] MEDS: ENOXAPARIN SOD 60 MG/0.6 ML SYRINGE SC SCH ×2 (10:00→22:00)
[2020-09-28] MEDS: CHOLECALCIFEROL (VITD3) 2,000 UNIT CAP PO SCH (10:00)
[2020-09-28] MEDS: FAMOTIDINE (10MG/ML) 2ML VL IV SCH (10:00)
[2020-09-28] MEDS: CARVEDILOL 12.5 MG TAB PO SCH ×2 (12:00→22:00)
[2020-09-28] MEDS ORDERED: amLODIPine BESYLATE 5 MG TAB PO ONE (18:00)
[2020-09-28] MEDS: MIDAZOLAM DRIP 50 mg/50mL 50 ML IV SCH (20:58)
[2020-09-28] MEDS: fentaNYL Drip 2500mCg/250mlNS 250 ML IV SCH (22:06)
[2020-09-29] VITALS (88 sets, daily range): BP systolic 94–174; BP diastolic 49–75
[2020-09-29] MEDS: PERITONEAL DIALYSIS 2.5% SOLN 2,000 ML IP SCH ×6 (02:00→22:00)
[2020-09-29] MEDS: ACCU-CHEK COMFORT CURVE STRIP VI SCH ×4 (06:00→23:45)
[2020-09-29] MEDS: CALCIUM ACETATE 667 MG CAP NG SCH ×4 (06:00→23:43)
[2020-09-29] MEDS: BUMETANIDE 2.5mg/10ml (0.25 mg/ml) INJ IV SCH ×2 (06:00→18:00)
[2020-09-29] MEDS: InsuLIN REG 1unit/0.01ml Soln (100units/ml) SC SCH ×4 (06:00→23:43)
[2020-09-29] MEDS: INSULIN LANTUS (GLARGINE) 1 /0.01ml (100units/ml) SC SCH ×2 (07:00→22:00)
[2020-09-29] MEDS: cefTRIAXone 1GM/50ML D5W 50 ML IV SCH (09:00)
[2020-09-29] MEDS: DexAMETHasone SOD PHOS 10MG/1ML VIAL INJ IV SCH (10:00)
[2020-09-29] MEDS: ENOXAPARIN SOD 60 MG/0.6 ML SYRINGE SC SCH ×2 (10:00→21:59)
[2020-09-29] MEDS: POTASSIUM EFFERVESENT TAB 25 MEQ GT SCH (10:00)
[2020-09-29] MEDS: ASCORBIC ACID 1,000 MG TAB NG SCH (10:00)
[2020-09-29] MEDS: FAMOTIDINE (10MG/ML) 2ML VL IV SCH (10:00)
[2020-09-29] MEDS: CHOLECALCIFEROL (VITD3) 2,000 UNIT CAP PO SCH (10:00)
[2020-09-29] MEDS: CARVEDILOL 12.5 MG TAB PO SCH ×2 (10:00→22:00)
[2020-09-29] MEDS: ZINC SULFATE 220mg CAP or TAB PO SCH (10:00)
[2020-09-29 10:59] LABS: Basophils # (auto) 0 10 ^3/uL (0-0.2); Basophils % (auto) 0.2 % (0.0-2.0); Eosinophils # (auto) 0 10 ^3/uL (0-0.8); Hematocrit 26.8 % (41.0-53.0); Hemoglobin 8.9 g/dL (13.5-17.5); Lymphocytes # (auto) 0.3 10 ^3/uL (0.4-5.4); Lymphocytes % (auto) 2.1 % (10.0-50.0); Mean Corpuscular Hgb Conc. 33.3 g/dL (32.0-36.0); Mean Corpuscular Volume 90.2 fL (80.0-100.0); Monocytes % (auto) 6.8 % (0.0-12.0); Neutrophils # (auto) 13.2 10 ^3/uL (1.6-8.6); Neutrophils % (auto) 90.9 % (37.0-80.0); Platelet Count (auto) 214 10^3/uL (140-450); Red Blood Cells 2.97 10^6/uL (4.5-5.90); Red Cell Distribution Width 15.7 % (11.8-14.3); White Blood Cell 14.5 10^3/uL (4.4-10.8)
[2020-09-29 11:20] LABS: Potassium 3.9 mmol/L (3.5-5.1)
[2020-09-29 11:25] LABS: BUN/Creatinine Ratio 24.5; Calcium 7.9 mg/dL (8.5-10.1)
[2020-09-29] MEDS: MIDAZOLAM DRIP 50 mg/50mL 50 ML IV SCH (21:58)
[2020-09-29] MEDS: NOREPINEPHRINE 8 MG/250ML KIT 250 ML IV SCH (21:59)
[2020-09-30] VITALS (90 sets, daily range): BP systolic 59–237; BP diastolic 29–90
[2020-09-30] MEDS: PERITONEAL DIALYSIS 2.5% SOLN 2,000 ML IP SCH ×6 (02:00→22:00)
[2020-09-30] MEDS: MIDAZOLAM DRIP 50 mg/50mL 50 ML IV SCH ×2 (03:33→19:30)
[2020-09-30 05:49] LABS: Basophils # (auto) 0 10 ^3/uL (0-0.2); Eosinophils # (auto) 0.1 10 ^3/uL (0-0.8); Eosinophils % (auto) 0.7 % (0.0-7.0); Lymphocytes # (auto) 0.7 10 ^3/uL (0.4-5.4); Mean Corpuscular Volume 89.6 fL (80.0-100.0); Monocytes # (auto) 0.8 10 ^3/uL (0-1.3); Red Cell Distribution Width 15.7 % (11.8-14.3)
[2020-09-30 05:51] LABS: Basophils % (auto) 0.3 % (0.0-2.0); Hematocrit 24.3 % (41.0-53.0); Hemoglobin 8.1 g/dL (13.5-17.5); Lymphocytes % (auto) 5.8 % (10.0-50.0); Mean Corpuscular Hgb Conc. 33.5 g/dL (32.0-36.0); Monocytes % (auto) 6.4 % (0.0-12.0); Neutrophils # (auto) 10.9 10 ^3/uL (1.6-8.6); Neutrophils % (auto) 86.8 % (37.0-80.0); Nucleated Red Blood Cells % 0.3 %; Platelet Count (auto) 231 10^3/uL (140-450); Red Blood Cells 2.71 10^6/uL (4.5-5.90); White Blood Cell 12.5 10^3/uL (4.4-10.8)
[2020-09-30] MEDS: CALCIUM ACETATE 667 MG CAP NG SCH ×3 (06:00→18:00)
[2020-09-30] MEDS: ACCU-CHEK COMFORT CURVE STRIP VI SCH ×3 (06:00→18:00)
[2020-09-30] MEDS: InsuLIN REG 1unit/0.01ml Soln (100units/ml) SC SCH ×3 (06:00→17:57)
[2020-09-30] MEDS: BUMETANIDE 2.5mg/10ml (0.25 mg/ml) INJ IV SCH ×2 (06:00→17:57)
[2020-09-30 06:02] LABS: Calcium 7.6 mg/dL (8.5-10.1); Potassium 3.8 mmol/L (3.5-5.1)
[2020-09-30 06:06] LABS: BUN/Creatinine Ratio 23.7
[2020-09-30] MEDS: INSULIN LANTUS (GLARGINE) 1 /0.01ml (100units/ml) SC SCH ×2 (06:37→22:00)
[2020-09-30] MEDS: ZINC SULFATE 220mg CAP or TAB PO SCH (08:55)
[2020-09-30] MEDS: cefTRIAXone 1GM/50ML D5W 50 ML IV SCH (08:55)
[2020-09-30] MEDS: ENOXAPARIN SOD 60 MG/0.6 ML SYRINGE SC SCH ×2 (08:56→22:00)
[2020-09-30] MEDS: POTASSIUM EFFERVESENT TAB 25 MEQ GT SCH (08:57)
[2020-09-30] MEDS: ASCORBIC ACID 1,000 MG TAB NG SCH (08:58)
[2020-09-30] MEDS: DexAMETHasone SOD PHOS 10MG/1ML VIAL INJ IV SCH (08:59)
[2020-09-30] MEDS: CARVEDILOL 12.5 MG TAB PO SCH ×2 (09:00→22:00)
[2020-09-30] MEDS: FAMOTIDINE (10MG/ML) 2ML VL IV SCH (09:01)
[2020-09-30] MEDS: CHOLECALCIFEROL (VITD3) 2,000 UNIT CAP PO SCH (09:02)
[2020-09-30] MEDS: NOREPINEPHRINE 8 MG/250ML KIT 250 ML IV SCH (09:30)
[2020-09-30] MEDS: fentaNYL Drip 2500mCg/250mlNS 250 ML IV SCH ×2 (10:00→22:30)
[2020-09-30] MEDS: PANTOPRAZOLE 40 MG/10 ML VIAL INJ IV SCH (22:00)
[2020-10-01] VITALS (92 sets, daily range): BP systolic 73–142; BP diastolic 37–76
[2020-10-01] MEDS: PERITONEAL DIALYSIS 2.5% SOLN 2,000 ML IP SCH ×6 (02:00→21:52)
[2020-10-01] MEDS: CALCIUM ACETATE 667 MG CAP NG SCH ×4 (06:00→18:06)
[2020-10-01] MEDS: ACCU-CHEK COMFORT CURVE STRIP VI SCH ×4 (06:00→18:06)
[2020-10-01] MEDS: InsuLIN REG 1unit/0.01ml Soln (100units/ml) SC SCH ×4 (06:00→18:07)
[2020-10-01] MEDS: BUMETANIDE 2.5mg/10ml (0.25 mg/ml) INJ IV SCH ×2 (06:00→17:15)
[2020-10-01 06:53] LABS: Basophils # (auto) 0 10 ^3/uL (0-0.2); Eosinophils # (auto) 0 10 ^3/uL (0-0.8); Lymphocytes # (auto) 0.5 10 ^3/uL (0.4-5.4); Lymphocytes % (auto) 3.9 % (10.0-50.0); Neutrophils # (auto) 11.5 10 ^3/uL (1.6-8.6); White Blood Cell 12.7 10^3/uL (4.4-10.8)
[2020-10-01] MEDS: INSULIN LANTUS (GLARGINE) 1 /0.01ml (100units/ml) SC SCH ×2 (06:54→21:56)
[2020-10-01 06:56] LABS: Basophils % (auto) 0.3 % (0.0-2.0); Hematocrit 24.3 % (41.0-53.0); Hemoglobin 8.2 g/dL (13.5-17.5); Mean Corpuscular Hemoglobin 30.4 pg (28.0-32.0); Mean Corpuscular Hgb Conc. 33.7 g/dL (32.0-36.0); Mean Corpuscular Volume 90.1 fL (80.0-100.0); Monocytes # (auto) 0.7 10 ^3/uL (0-1.3); Monocytes % (auto) 5.3 % (0.0-12.0); Neutrophils % (auto) 90.5 % (37.0-80.0); Nucleated Red Blood Cells % 0.1 %; Platelet Count (auto) 321 10^3/uL (140-450); Red Cell Distribution Width 15.5 % (11.8-14.3)
[2020-10-01 07:42] LABS: Albumin 1.3 g/dL (3.4-5.0); Calcium 7.7 mg/dL (8.5-10.1); Magnesium 2.2 mg/dL (1.6-2.6)
[2020-10-01 07:45] LABS: Bilirubin, Total 0.4 mg/dL (0.2-1.0); Total Protein 5.4 g/dL (6.4-8.2)
[2020-10-01 07:48] LABS: Potassium 4.6 mmol/L (3.5-5.1)
[2020-10-01] MEDS: NOREPINEPHRINE 8 MG/250ML KIT 250 ML IV SCH (09:30)
[2020-10-01] MEDS: CHOLECALCIFEROL (VITD3) 2,000 UNIT CAP PO SCH (10:00)
[2020-10-01] MEDS: ASCORBIC ACID 1,000 MG TAB NG SCH (10:00)
[2020-10-01] MEDS: CARVEDILOL 12.5 MG TAB PO SCH ×2 (10:00→21:53)
[2020-10-01] MEDS: PANTOPRAZOLE 40 MG/10 ML VIAL INJ IV SCH ×2 (10:00→21:52)
[2020-10-01] MEDS: cefTRIAXone 1GM/50ML D5W 50 ML IV SCH (10:36)
[2020-10-01] MEDS: fentaNYL Drip 2500mCg/250mlNS 250 ML IV SCH (10:38)
[2020-10-01] MEDS: DexAMETHasone SOD PHOS 10MG/1ML VIAL INJ IV SCH (10:39)
[2020-10-01] MEDS: ZINC SULFATE 220mg CAP or TAB PO SCH (10:40)
[2020-10-01] MEDS: POTASSIUM EFFERVESENT TAB 25 MEQ GT SCH (10:40)
[2020-10-01] MEDS: ENOXAPARIN SOD 60 MG/0.6 ML SYRINGE SC SCH ×2 (10:43→21:53)
[2020-10-01] MEDS: MIDAZOLAM DRIP 50 mg/50mL 50 ML IV SCH ×2 (10:44→16:30)
[2020-10-01] MEDS ORDERED: FLUCONAZOLE 200MG/100ML 100 ML IV ONE (17:45)
[2020-10-01] MEDS ORDERED: INSULIN LANTUS (GLARGINE) 1 /0.01ml (100units/ml) SC SCH (22:00)
[2020-10-02] VITALS (92 sets, daily range): BP systolic 66–141; BP diastolic 36–73
[2020-10-02] MEDS: InsuLIN REG 1unit/0.01ml Soln (100units/ml) SC SCH ×5 (00:05→23:52)
[2020-10-02] MEDS: ACCU-CHEK COMFORT CURVE STRIP VI SCH ×5 (00:16→23:51)
[2020-10-02] MEDS: PERITONEAL DIALYSIS 2.5% SOLN 2,000 ML IP SCH ×4 (02:00→13:49)
[2020-10-02] MEDS: BUMETANIDE 2.5mg/10ml (0.25 mg/ml) INJ IV SCH ×2 (05:30→16:46)
[2020-10-02] MEDS: CALCIUM ACETATE 667 MG CAP NG SCH ×4 (05:31→16:46)
[2020-10-02] MEDS: INSULIN LANTUS (GLARGINE) 1 /0.01ml (100units/ml) SC SCH ×2 (05:58→22:27)
[2020-10-02] MEDS: MIDAZOLAM DRIP 50 mg/50mL 50 ML IV SCH (07:56)
[2020-10-02] MEDS: FLUCONAZOLE 200MG/100ML 100 ML IV SCH (07:57)
[2020-10-02] MEDS: cefTRIAXone 1GM/50ML D5W 50 ML IV SCH (07:57)
[2020-10-02] MEDS: ASCORBIC ACID 1,000 MG TAB NG SCH (07:58)
[2020-10-02] MEDS: ENOXAPARIN SOD 60 MG/0.6 ML SYRINGE SC SCH ×2 (07:58→22:28)
[2020-10-02] MEDS: PANTOPRAZOLE 40 MG/10 ML VIAL INJ IV SCH ×2 (07:59→22:00)
[2020-10-02] MEDS: DexAMETHasone SOD PHOS 10MG/1ML VIAL INJ IV SCH (07:59)
[2020-10-02] MEDS: ZINC SULFATE 220mg CAP or TAB PO SCH (07:59)
[2020-10-02] MEDS: CHOLECALCIFEROL (VITD3) 2,000 UNIT CAP PO SCH (08:00)
[2020-10-02] MEDS: CARVEDILOL 12.5 MG TAB PO SCH ×2 (08:00→22:26)
[2020-10-02] MEDS: NOREPINEPHRINE 8 MG/250ML KIT 250 ML IV SCH ×2 (09:30→13:49)
[2020-10-02 09:59] LABS: Albumin 1.4 g/dL (3.4-5.0); Calcium 7.2 mg/dL (8.5-10.1); Potassium 3.8 mmol/L (3.5-5.1)
[2020-10-02] MEDS: POTASSIUM EFFERVESENT TAB 25 MEQ GT SCH (10:00)
[2020-10-02 10:02] LABS: BUN/Creatinine Ratio 25.3; Bilirubin, Total 0.2 mg/dL (0.2-1.0); Total Protein 5.2 g/dL (6.4-8.2)
[2020-10-02 10:03] LABS: Eosinophils # (auto) 0 10 ^3/uL (0-0.8)
[2020-10-02 10:05] LABS: Basophils # (auto) 0.1 10 ^3/uL (0-0.2); Basophils % (auto) 0.3 % (0.0-2.0); Hematocrit 19.4 % (41.0-53.0); Lymphocytes # (auto) 0.8 10 ^3/uL (0.4-5.4); Lymphocytes % (auto) 3.6 % (10.0-50.0); Mean Corpuscular Hemoglobin 29.6 pg (28.0-32.0); Mean Corpuscular Hgb Conc. 32.8 g/dL (32.0-36.0); Mean Corpuscular Volume 90.3 fL (80.0-100.0); Monocytes # (auto) 1.3 10 ^3/uL (0-1.3); Monocytes % (auto) 5.5 % (0.0-12.0); Neutrophils # (auto) 20.6 10 ^3/uL (1.6-8.6); Neutrophils % (auto) 90.6 % (37.0-80.0); Platelet Count (auto) 279 10^3/uL (140-450); Red Blood Cells 2.15 10^6/uL (4.5-5.90); Red Cell Distribution Width 15.9 % (11.8-14.3); White Blood Cell 22.7 10^3/uL (4.4-10.8)
[2020-10-02 10:06] LABS: Hemoglobin 6.4 g/dL (13.5-17.5)
[2020-10-02] MEDS: Nepro With Carb Steady 1 Liter Bottle GT SCH (13:48)
[2020-10-02] MEDS: PERITONEAL DIALYSIS 1.5% SOLN 2,000 ML IP SCH ×2 (17:41→22:25)
[2020-10-03] VITALS (93 sets, daily range): BP systolic 87–146; BP diastolic 36–71
[2020-10-03] MEDS: PERITONEAL DIALYSIS 1.5% SOLN 2,000 ML IP SCH ×6 (02:23→21:55)
[2020-10-03 04:52] LABS: Potassium 4.3 mmol/L (3.5-5.1)
[2020-10-03 04:54] LABS: BUN/Creatinine Ratio 26.3; Hematocrit 20.4 % (41.0-53.0); Mean Corpuscular Hemoglobin 30.3 pg (28.0-32.0); Mean Corpuscular Hgb Conc. 33.8 g/dL (32.0-36.0); Mean Corpuscular Volume 89.9 fL (80.0-100.0); Platelet Count (auto) 225 10^3/uL (140-450); Red Blood Cells 2.27 10^6/uL (4.5-5.90); Red Cell Distribution Width 15.7 % (11.8-14.3); White Blood Cell 25.1 10^3/uL (4.4-10.8)
[2020-10-03 05:32] LABS: Hemoglobin 6.9 g/dL (13.5-17.5)
[2020-10-03 05:33] LABS: Basophils % (manual) 0 (0.0-2.0); Blast Cells 0; Eosinophils % (manual) 0 (0-7); Promyelocytes % 0; Reactive Lymphocytes 0
[2020-10-03] MEDS: CALCIUM ACETATE 667 MG CAP NG SCH ×4 (05:59→18:14)
[2020-10-03] MEDS: BUMETANIDE 2.5mg/10ml (0.25 mg/ml) INJ IV SCH ×2 (05:59→18:14)
[2020-10-03] MEDS: InsuLIN REG 1unit/0.01ml Soln (100units/ml) SC SCH ×4 (06:00→23:34)
[2020-10-03] MEDS: ACCU-CHEK COMFORT CURVE STRIP VI SCH ×3 (06:00→17:33)
[2020-10-03] MEDS: INSULIN LANTUS (GLARGINE) 1 /0.01ml (100units/ml) SC SCH ×2 (06:01→22:03)
[2020-10-03 06:20] LABS: Band Neutrophils % (manual) 2; Lymphocytes % (manual) 4 (10.0-50.0)
[2020-10-03 06:21] LABS: Monocytes % (manual) 4 (0-12)
[2020-10-03 06:22] LABS: Metamyelocytes % 1
[2020-10-03 07:16] LABS: Myelocytes % 0
[2020-10-03] MEDS: fentaNYL Drip 2500mCg/250mlNS 250 ML IV SCH (08:30)
[2020-10-03] MEDS: cefTRIAXone 1GM/50ML D5W 50 ML IV SCH (08:40)
[2020-10-03] MEDS: POTASSIUM EFFERVESENT TAB 25 MEQ GT SCH (09:58)
[2020-10-03] MEDS: ASCORBIC ACID 1,000 MG TAB NG SCH (09:58)
[2020-10-03] MEDS: PANTOPRAZOLE 40 MG/10 ML VIAL INJ IV SCH ×2 (09:58→22:01)
[2020-10-03] MEDS: FLUCONAZOLE 200MG/100ML 100 ML IV SCH (09:58)
[2020-10-03] MEDS: DexAMETHasone SOD PHOS 10MG/1ML VIAL INJ IV SCH (09:58)
[2020-10-03] MEDS: EPOETIN ALFA 4,000 UNIT/ML VL SC SCH (09:59)
[2020-10-03] MEDS: ZINC SULFATE 220mg CAP or TAB PO SCH (09:59)
[2020-10-03] MEDS: CHOLECALCIFEROL (VITD3) 2,000 UNIT CAP PO SCH (09:59)
[2020-10-03] MEDS: CARVEDILOL 12.5 MG TAB PO SCH ×2 (09:59→22:02)
[2020-10-03] MEDS: ENOXAPARIN SOD 60 MG/0.6 ML SYRINGE SC SCH ×2 (09:59→21:56)
[2020-10-04] VITALS (93 sets, daily range): BP systolic 87–146; BP diastolic 42–64
[2020-10-04] MEDS: PERITONEAL DIALYSIS 1.5% SOLN 2,000 ML IP SCH ×6 (02:09→21:06)
[2020-10-04 04:37] LABS: Eosinophils # (auto) 0 10 ^3/uL (0-0.8)
[2020-10-04 04:40] LABS: Basophils # (auto) 0 10 ^3/uL (0-0.2); Basophils % (auto) 0.1 % (0.0-2.0); Hematocrit 23.7 % (41.0-53.0); Lymphocytes # (auto) 1.2 10 ^3/uL (0.4-5.4); Lymphocytes % (auto) 4.9 % (10.0-50.0); Mean Corpuscular Hgb Conc. 33.6 g/dL (32.0-36.0); Mean Corpuscular Volume 92.1 fL (80.0-100.0); Monocytes # (auto) 1.1 10 ^3/uL (0-1.3); Monocytes % (auto) 4.4 % (0.0-12.0); Neutrophils # (auto) 21.8 10 ^3/uL (1.6-8.6); Neutrophils % (auto) 90.6 % (37.0-80.0); Nucleated Red Blood Cells % 2.2 %; Platelet Count (auto) 175 10^3/uL (140-450); Red Blood Cells 2.57 10^6/uL (4.5-5.90); Red Cell Distribution Width 15.7 % (11.8-14.3); White Blood Cell 24.1 10^3/uL (4.4-10.8)
[2020-10-04 05:07] LABS: Potassium 4.3 mmol/L (3.5-5.1)
[2020-10-04 05:15] LABS: BUN/Creatinine Ratio 25.3; Phosphorus 4.4 mg/dL (2.5-4.90)
[2020-10-04] MEDS: CALCIUM ACETATE 667 MG CAP NG SCH ×4 (05:22→18:00)
[2020-10-04] MEDS: BUMETANIDE 2.5mg/10ml (0.25 mg/ml) INJ IV SCH ×2 (05:22→18:00)
[2020-10-04] MEDS: ACCU-CHEK COMFORT CURVE STRIP VI SCH ×4 (05:42→18:01)
[2020-10-04] MEDS: InsuLIN REG 1unit/0.01ml Soln (100units/ml) SC SCH ×3 (05:43→18:02)
[2020-10-04] MEDS: INSULIN LANTUS (GLARGINE) 1 /0.01ml (100units/ml) SC SCH ×2 (05:45→21:06)
[2020-10-04] MEDS: cefTRIAXone 1GM/50ML D5W 50 ML IV SCH (07:44)
[2020-10-04] MEDS: fentaNYL Drip 2500mCg/250mlNS 250 ML IV SCH (08:30)
[2020-10-04] MEDS: NOREPINEPHRINE 8 MG/250ML KIT 250 ML IV SCH (09:30)
[2020-10-04] MEDS: POTASSIUM EFFERVESENT TAB 25 MEQ GT SCH (09:41)
[2020-10-04] MEDS: FLUCONAZOLE 200MG/100ML 100 ML IV SCH (09:42)
[2020-10-04] MEDS: DexAMETHasone SOD PHOS 10MG/1ML VIAL INJ IV SCH (09:42)
[2020-10-04] MEDS: ASCORBIC ACID 1,000 MG TAB NG SCH (09:43)
[2020-10-04] MEDS: CHOLECALCIFEROL (VITD3) 2,000 UNIT CAP PO SCH (09:43)
[2020-10-04] MEDS: PANTOPRAZOLE 40 MG/10 ML VIAL INJ IV SCH ×2 (09:43→21:11)
[2020-10-04] MEDS: CARVEDILOL 12.5 MG TAB PO SCH ×2 (09:43→21:11)
[2020-10-04] MEDS: ZINC SULFATE 220mg CAP or TAB PO SCH (09:43)
[2020-10-05] VITALS (102 sets, daily range): BP systolic 84–137; BP diastolic 35–70
[2020-10-05] MEDS: PERITONEAL DIALYSIS 1.5% SOLN 2,000 ML IP SCH ×6 (02:00→21:47)
[2020-10-05 04:58] LABS: BUN/Creatinine Ratio 27.8; Calcium 7.1 mg/dL (8.5-10.1)
[2020-10-05] MEDS: BUMETANIDE 2.5mg/10ml (0.25 mg/ml) INJ IV SCH (05:15)
[2020-10-05] MEDS: CALCIUM ACETATE 667 MG CAP NG SCH ×5 (05:15→23:11)
[2020-10-05] MEDS: INSULIN LANTUS (GLARGINE) 1 /0.01ml (100units/ml) SC SCH ×2 (06:15→22:02)
[2020-10-05] MEDS: InsuLIN REG 1unit/0.01ml Soln (100units/ml) SC SCH ×4 (06:15→18:45)
[2020-10-05] MEDS: ACCU-CHEK COMFORT CURVE STRIP VI SCH ×4 (06:16→18:45)
[2020-10-05] MEDS: fentaNYL Drip 2500mCg/250mlNS 250 ML IV SCH ×2 (08:30→18:24)
[2020-10-05] MEDS: NOREPINEPHRINE 8 MG/250ML KIT 250 ML IV SCH (09:30)
[2020-10-05] MEDS: cefTRIAXone 1GM/50ML D5W 50 ML IV SCH (10:12)
[2020-10-05] MEDS: POTASSIUM EFFERVESENT TAB 25 MEQ GT SCH (10:20)
[2020-10-05] MEDS: ZINC SULFATE 220mg CAP or TAB PO SCH (10:21)
[2020-10-05] MEDS: FLUCONAZOLE 200MG/100ML 100 ML IV SCH (10:21)
[2020-10-05] MEDS: PANTOPRAZOLE 40 MG/10 ML VIAL INJ IV SCH ×2 (10:21→22:05)
[2020-10-05] MEDS: CHOLECALCIFEROL (VITD3) 2,000 UNIT CAP PO SCH (10:22)
[2020-10-05] MEDS: CARVEDILOL 12.5 MG TAB PO SCH ×2 (10:23→22:05)
[2020-10-05] MEDS: EPOETIN ALFA 4,000 UNIT/ML VL SC SCH (10:28)
[2020-10-05 11:50] LABS: Basophils # (auto) 0.1 10 ^3/uL (0-0.2); Eosinophils # (auto) 0 10 ^3/uL (0-0.8); Lymphocytes # (auto) 0.8 10 ^3/uL (0.4-5.4)
[2020-10-05 11:53] LABS: Basophils % (auto) 0.3 % (0.0-2.0); Lymphocytes % (auto) 4.4 % (10.0-50.0); Mean Corpuscular Hemoglobin 30.7 pg (28.0-32.0); Mean Corpuscular Hgb Conc. 32.6 g/dL (32.0-36.0); Mean Corpuscular Volume 94.1 fL (80.0-100.0); Monocytes # (auto) 0.9 10 ^3/uL (0-1.3); Monocytes % (auto) 4.6 % (0.0-12.0); Neutrophils # (auto) 17.1 10 ^3/uL (1.6-8.6); Neutrophils % (auto) 90.7 % (37.0-80.0); Nucleated Red Blood Cells % 5.6 %; Platelet Count (auto) 154 10^3/uL (140-450); Red Blood Cells 2.12 10^6/uL (4.5-5.90); Red Cell Distribution Width 15.5 % (11.8-14.3); White Blood Cell 18.9 10^3/uL (4.4-10.8)
[2020-10-05 12:02] LABS: Hemoglobin 6.5 g/dL (13.5-17.5)
[2020-10-06] VITALS (100 sets, daily range): BP systolic 92–150; BP diastolic 25–64
[2020-10-06] MEDS: InsuLIN REG 1unit/0.01ml Soln (100units/ml) SC SCH ×4 (00:18→17:29)
[2020-10-06] MEDS: ACCU-CHEK COMFORT CURVE STRIP VI SCH ×4 (00:28→17:29)
[2020-10-06] MEDS: PERITONEAL DIALYSIS 1.5% SOLN 2,000 ML IP SCH ×6 (01:23→22:00)
[2020-10-06 05:15] LABS: BUN/Creatinine Ratio 28.8; Calcium 7.2 mg/dL (8.5-10.1); Potassium 3.6 mmol/L (3.5-5.1)
[2020-10-06] MEDS: CALCIUM ACETATE 667 MG CAP NG SCH ×3 (05:21→18:19)
[2020-10-06] MEDS: INSULIN LANTUS (GLARGINE) 1 /0.01ml (100units/ml) SC SCH ×2 (05:44→22:00)
[2020-10-06] MEDS: cefTRIAXone 1GM/50ML D5W 50 ML IV SCH (09:00)
[2020-10-06] MEDS: NOREPINEPHRINE 8 MG/250ML KIT 250 ML IV SCH (09:30)
[2020-10-06] MEDS: ZINC SULFATE 220mg CAP or TAB PO SCH (09:45)
[2020-10-06] MEDS: PANTOPRAZOLE 40 MG/10 ML VIAL INJ IV SCH ×2 (09:45→22:00)
[2020-10-06] MEDS: CHOLECALCIFEROL (VITD3) 2,000 UNIT CAP PO SCH (09:45)
[2020-10-06] MEDS: CARVEDILOL 12.5 MG TAB PO SCH ×2 (09:45→22:00)
[2020-10-06 09:57] LABS: Basophils # (auto) 0.1 10 ^3/uL (0-0.2); Basophils % (auto) 0.9 % (0.0-2.0); Eosinophils # (auto) 0.3 10 ^3/uL (0-0.8); Eosinophils % (auto) 1.9 % (0.0-7.0); Hematocrit 30.9 % (41.0-53.0); Hemoglobin 10.2 g/dL (13.5-17.5); Lymphocytes # (auto) 1.1 10 ^3/uL (0.4-5.4); Lymphocytes % (auto) 6.7 % (10.0-50.0); Mean Corpuscular Hemoglobin 30.7 pg (28.0-32.0); Mean Corpuscular Hgb Conc. 33.1 g/dL (32.0-36.0); Mean Corpuscular Volume 92.6 fL (80.0-100.0); Monocytes # (auto) 0.8 10 ^3/uL (0-1.3); Monocytes % (auto) 5.2 % (0.0-12.0); Neutrophils # (auto) 13.4 10 ^3/uL (1.6-8.6); Neutrophils % (auto) 85.3 % (37.0-80.0); Nucleated Red Blood Cells % 2.9 %; Platelet Count (auto) 122 10^3/uL (140-450); Red Blood Cells 3.34 10^6/uL (4.5-5.90); Red Cell Distribution Width 15.3 % (11.8-14.3); White Blood Cell 15.7 10^3/uL (4.4-10.8)
[2020-10-06] MEDS: FLUCONAZOLE 200MG/100ML 100 ML IV SCH (10:00)
[2020-10-06 10:25] LABS: Albumin 1.5 g/dL (3.4-5.0); Calcium 7.5 mg/dL (8.5-10.1); Potassium 3.5 mmol/L (3.5-5.1)
[2020-10-06 10:29] LABS: Bilirubin, Total 0.3 mg/dL (0.2-1.0); Total Protein 4.9 g/dL (6.4-8.2)
[2020-10-06 10:30] LABS: BUN/Creatinine Ratio 26.9
[2020-10-06] MEDS: SODIUM FERR GLUC 125 MG in NS 100 ML IV SCH (12:00)
[2020-10-06] MEDS ORDERED: IRON SUCROSE COMPLEX 200 MG in SODIUM CHL 0.9% 100 ML IV SCH (12:00)
[2020-10-07] VITALS (60 sets, daily range): BP systolic 84–165; BP diastolic 28–70
[2020-10-07] MEDS: PERITONEAL DIALYSIS 1.5% SOLN 2,000 ML IP SCH ×4 (02:00→14:19)
[2020-10-07] MEDS: NOREPINEPHRINE 8 MG/250ML KIT 250 ML IV SCH ×2 (03:15→09:30)
[2020-10-07] MEDS: CALCIUM ACETATE 667 MG CAP NG SCH ×4 (06:23→18:06)
[2020-10-07] MEDS: ACCU-CHEK COMFORT CURVE STRIP VI SCH ×4 (06:23→18:07)
[2020-10-07] MEDS: InsuLIN REG 1unit/0.01ml Soln (100units/ml) SC SCH ×4 (06:27→18:00)
[2020-10-07] MEDS: INSULIN LANTUS (GLARGINE) 1 /0.01ml (100units/ml) SC SCH ×2 (06:52→22:00)
[2020-10-07] MEDS: ZINC SULFATE 220mg CAP or TAB PO SCH (08:40)
[2020-10-07] MEDS: cefTRIAXone 1GM/50ML D5W 50 ML IV SCH (08:40)
[2020-10-07] MEDS: CARVEDILOL 12.5 MG TAB PO SCH ×2 (08:40→22:00)
[2020-10-07] MEDS: PANTOPRAZOLE 40 MG/10 ML VIAL INJ IV SCH ×2 (08:40→22:00)
[2020-10-07] MEDS: CHOLECALCIFEROL (VITD3) 2,000 UNIT CAP PO SCH (08:41)
[2020-10-07] MEDS: EPOETIN ALFA 4,000 UNIT/ML VL SC SCH (09:35)
[2020-10-07] MEDS: FLUCONAZOLE 200MG/100ML 100 ML IV SCH (09:37)
[2020-10-07] MEDS: SODIUM FERR GLUC 125 MG in NS 100 ML IV SCH (12:13)
[2020-10-07 12:23] LABS: Hematocrit 31.5 % (41.0-53.0); Hemoglobin 10.4 g/dL (13.5-17.5)
[2020-10-07 12:30] LABS: Calcium 7.8 mg/dL (8.5-10.1)
[2020-10-07 12:32] LABS: BUN/Creatinine Ratio 26.6
[2020-10-07] MEDS ORDERED: PERITONEAL DIALYSIS IP SCH ×2 (18:00)
[2020-10-07] MEDS ORDERED: PERITONEAL DIALYSIS 2.5% SOLN 2,000 ML IP SCH (18:00)
[2020-10-07] MEDS: PERITONEAL DIALYSIS 2.5% SOLN 2,000 ML IP SCH (22:00)
[2020-10-07] MEDS ORDERED: PERITONEAL DIALYSIS 1.5% SOLN 2,000 ML IP SCH (22:00)
[2020-10-08] VITALS (14 sets, daily range): BP systolic 121–161; BP diastolic 52–79
[2020-10-08] MEDS: PERITONEAL DIALYSIS 1.5% SOLN 2,000 ML IP SCH ×3 (02:00→18:05)
[2020-10-08] MEDS: PERITONEAL DIALYSIS 2.5% SOLN 2,000 ML IP SCH ×3 (06:00→22:30)
[2020-10-08] MEDS: ACCU-CHEK COMFORT CURVE STRIP VI SCH ×4 (06:00→18:07)
[2020-10-08] MEDS: InsuLIN REG 1unit/0.01ml Soln (100units/ml) SC SCH ×4 (06:00→18:00)
[2020-10-08] MEDS: CALCIUM ACETATE 667 MG CAP NG SCH ×5 (06:00→23:34)
[2020-10-08] MEDS: INSULIN LANTUS (GLARGINE) 1 /0.01ml (100units/ml) SC SCH ×2 (06:54→22:30)
[2020-10-08] MEDS: cefTRIAXone 1GM/50ML D5W 50 ML IV SCH (08:31)
[2020-10-08 08:52] LABS: Basophils # (auto) 0 10 ^3/uL (0-0.2); Basophils % (auto) 0.2 % (0.0-2.0); Eosinophils # (auto) 0.4 10 ^3/uL (0-0.8); Eosinophils % (auto) 4.6 % (0.0-7.0); Hematocrit 34.8 % (41.0-53.0); Hemoglobin 11.7 g/dL (13.5-17.5); Lymphocytes # (auto) 0.6 10 ^3/uL (0.4-5.4); Lymphocytes % (auto) 6.5 % (10.0-50.0); Mean Corpuscular Hemoglobin 31.2 pg (28.0-32.0); Mean Corpuscular Hgb Conc. 33.6 g/dL (32.0-36.0); Monocytes # (auto) 0.6 10 ^3/uL (0-1.3); Monocytes % (auto) 6.5 % (0.0-12.0); Neutrophils # (auto) 7.1 10 ^3/uL (1.6-8.6); Neutrophils % (auto) 82.2 % (37.0-80.0); Nucleated Red Blood Cells % 0.3 %; Platelet Count (auto) 150 10^3/uL (140-450); Red Blood Cells 3.74 10^6/uL (4.5-5.90); Red Cell Distribution Width 16.1 % (11.8-14.3); White Blood Cell 8.6 10^3/uL (4.4-10.8)
[2020-10-08 08:58] LABS: Calcium 7.9 mg/dL (8.5-10.1); Potassium 3.1 mmol/L (3.5-5.1)
[2020-10-08 09:02] LABS: BUN/Creatinine Ratio 25.6
[2020-10-08] MEDS: FLUCONAZOLE 200MG/100ML 100 ML IV SCH (09:23)
[2020-10-08] MEDS: CARVEDILOL 12.5 MG TAB PO SCH ×2 (09:24→22:00)
[2020-10-08] MEDS: PANTOPRAZOLE 40 MG/10 ML VIAL INJ IV SCH ×2 (09:24→22:34)
[2020-10-08] MEDS: ZINC SULFATE 220mg CAP or TAB PO SCH (09:24)
[2020-10-08] MEDS: CHOLECALCIFEROL (VITD3) 2,000 UNIT CAP PO SCH (09:24)
[2020-10-08] MEDS: NOREPINEPHRINE 8 MG/250ML KIT 250 ML IV SCH (09:30)
[2020-10-08] MEDS: SODIUM FERR GLUC 125 MG in NS 100 ML IV SCH (11:09)
[2020-10-08] MEDS: POTASSIUM CHL 20MEQ/100ML 100 ML IV SCH ×3 (12:25→15:35)
[2020-10-09] VITALS: BP 144/71
[2020-10-09] MEDS: ACCU-CHEK COMFORT CURVE STRIP VI SCH ×4 (00:25→17:51)
[2020-10-09] MEDS: InsuLIN REG 1unit/0.01ml Soln (100units/ml) SC SCH ×4 (00:28→17:52)
[2020-10-09] MEDS: PERITONEAL DIALYSIS 1.5% SOLN 2,000 ML IP SCH ×2 (01:39→11:38)
[2020-10-09 05:30] LABS: Basophils # (auto) 0 10 ^3/uL (0-0.2); Basophils % (auto) 0.3 % (0.0-2.0); Eosinophils # (auto) 0.3 10 ^3/uL (0-0.8); Eosinophils % (auto) 4.9 % (0.0-7.0); Hematocrit 34.7 % (41.0-53.0); Hemoglobin 11.8 g/dL (13.5-17.5); Lymphocytes # (auto) 0.7 10 ^3/uL (0.4-5.4); Lymphocytes % (auto) 10.3 % (10.0-50.0); Mean Corpuscular Hemoglobin 31.4 pg (28.0-32.0); Mean Corpuscular Volume 92.5 fL (80.0-100.0); Monocytes # (auto) 0.6 10 ^3/uL (0-1.3); Monocytes % (auto) 8.9 % (0.0-12.0); Neutrophils # (auto) 5.3 10 ^3/uL (1.6-8.6); Neutrophils % (auto) 75.6 % (37.0-80.0); Nucleated Red Blood Cells % 0.3 %; Platelet Count (auto) 175 10^3/uL (140-450); Red Blood Cells 3.75 10^6/uL (4.5-5.90); Red Cell Distribution Width 16.2 % (11.8-14.3)
[2020-10-09 05:54] LABS: BUN/Creatinine Ratio 23.3; Calcium 7.6 mg/dL (8.5-10.1); Potassium 3.6 mmol/L (3.5-5.1)
[2020-10-09] MEDS: CALCIUM ACETATE 667 MG CAP NG SCH (06:00)
[2020-10-09] MEDS: INSULIN LANTUS (GLARGINE) 1 /0.01ml (100units/ml) SC SCH ×2 (06:06→22:00)
[2020-10-09] MEDS: PERITONEAL DIALYSIS 2.5% SOLN 2,000 ML IP SCH ×3 (06:07→19:58)
[2020-10-09 08:00] VITALS: BP 129/74
[2020-10-09] MEDS: CARVEDILOL 12.5 MG TAB PO SCH ×2 (10:00→22:00)
[2020-10-09] MEDS: ZINC SULFATE 220mg CAP or TAB PO SCH (10:00)
[2020-10-09] MEDS: CHOLECALCIFEROL (VITD3) 2,000 UNIT CAP PO SCH (10:00)
[2020-10-09] MEDS: PANTOPRAZOLE 40 MG/10 ML VIAL INJ IV SCH ×2 (11:22→22:46)
[2020-10-09] MEDS: FLUCONAZOLE 200MG/100ML 100 ML IV SCH (11:22)
[2020-10-09] MEDS: cefTRIAXone 1GM/50ML D5W 50 ML IV SCH (11:22)
[2020-10-09] MEDS: CALCIUM ACETATE 667 MG CAP PO SCH ×3 (11:45→17:31)
[2020-10-09] MEDS ORDERED: PERITONEAL DIALYSIS 2.5% SOLN 2,000 ML IP SCH (14:00)
[2020-10-09 15:44] VITALS: BP 109/66
[2020-10-09] MEDS: SODIUM FERR GLUC 125 MG in NS 100 ML IV SCH (16:01)
[2020-10-09] MEDS ORDERED: DEXTROSE 10% 1,000 ML IV ONE (19:30)
[2020-10-10] VITALS: BP 138/86
[2020-10-10] MEDS: PERITONEAL DIALYSIS 2.5% SOLN 2,000 ML IP SCH ×6 (01:21→22:28)
[2020-10-10] MEDS: InsuLIN REG 1unit/0.01ml Soln (100units/ml) SC SCH ×4 (06:00→17:25)
[2020-10-10] MEDS: ACCU-CHEK COMFORT CURVE STRIP VI SCH ×4 (06:00→17:24)
[2020-10-10] MEDS: INSULIN LANTUS (GLARGINE) 1 /0.01ml (100units/ml) SC SCH ×2 (06:30→22:00)
[2020-10-10 08:00] VITALS: BP 144/77
[2020-10-10] MEDS: CALCIUM ACETATE 667 MG CAP PO SCH ×3 (08:00→17:25)
[2020-10-10] MEDS: PANTOPRAZOLE 40 MG/10 ML VIAL INJ IV SCH ×2 (09:19→22:26)
[2020-10-10] MEDS: cefTRIAXone 1GM/50ML D5W 50 ML IV SCH (09:19)
[2020-10-10 09:34] LABS: Basophils # (auto) 0 10 ^3/uL (0-0.2); Basophils % (auto) 0.5 % (0.0-2.0); Eosinophils # (auto) 0.5 10 ^3/uL (0-0.8); Eosinophils % (auto) 8.2 % (0.0-7.0); Hematocrit 37.5 % (41.0-53.0); Hemoglobin 12.1 g/dL (13.5-17.5); Lymphocytes # (auto) 0.7 10 ^3/uL (0.4-5.4); Lymphocytes % (auto) 11.3 % (10.0-50.0); Mean Corpuscular Hemoglobin 30.3 pg (28.0-32.0); Mean Corpuscular Hgb Conc. 32.1 g/dL (32.0-36.0); Mean Corpuscular Volume 94.2 fL (80.0-100.0); Monocytes # (auto) 0.7 10 ^3/uL (0-1.3); Monocytes % (auto) 11.2 % (0.0-12.0); Neutrophils # (auto) 4.4 10 ^3/uL (1.6-8.6); Neutrophils % (auto) 68.8 % (37.0-80.0); Nucleated Red Blood Cells % 0.3 %; Platelet Count (auto) 214 10^3/uL (140-450); Red Blood Cells 3.98 10^6/uL (4.5-5.90); Red Cell Distribution Width 17.1 % (11.8-14.3); White Blood Cell 6.4 10^3/uL (4.4-10.8)
[2020-10-10 09:45] LABS: Calcium 7.6 mg/dL (8.5-10.1)
[2020-10-10 09:47] LABS: BUN/Creatinine Ratio 20.1
[2020-10-10 09:49] LABS: % Iron Saturation 35.4 % (20-55)
[2020-10-10] MEDS: CHOLECALCIFEROL (VITD3) 2,000 UNIT CAP PO SCH (10:00)
[2020-10-10] MEDS ORDERED: EPOETIN ALFA 4,000 UNIT/ML VL SC SCH (10:00)
[2020-10-10] MEDS: ZINC SULFATE 220mg CAP or TAB PO SCH (10:00)
[2020-10-10] MEDS: CARVEDILOL 12.5 MG TAB PO SCH ×2 (10:00→22:00)
[2020-10-10] MEDS ORDERED: POTASSIUM EFFERVESENT TAB 25 MEQ PO ONE (10:45)
[2020-10-10] MEDS: FLUCONAZOLE 200MG/100ML 100 ML IV SCH (10:57)
[2020-10-10] MEDS: SODIUM FERR GLUC 125 MG in NS 100 ML IV SCH (14:27)
[2020-10-10 16:00] VITALS: BP 110/47
[2020-10-10] MEDS: POTASSIUM CHL 20 Meq TABLET PO SCH (22:00)
[2020-10-11] VITALS: BP 117/69
[2020-10-11] MEDS: InsuLIN REG 1unit/0.01ml Soln (100units/ml) SC SCH ×4 (00:25→18:20)
[2020-10-11] MEDS: ACCU-CHEK COMFORT CURVE STRIP VI SCH ×4 (00:25→18:17)
[2020-10-11] MEDS: PERITONEAL DIALYSIS 2.5% SOLN 2,000 ML IP SCH ×6 (02:15→22:00)
[2020-10-11 05:50] LABS: Basophils # (auto) 0 10 ^3/uL (0-0.2); Basophils % (auto) 0.5 % (0.0-2.0); Eosinophils # (auto) 0.5 10 ^3/uL (0-0.8); Eosinophils % (auto) 7.6 % (0.0-7.0); Hematocrit 34.7 % (41.0-53.0); Hemoglobin 11.5 g/dL (13.5-17.5); Lymphocytes # (auto) 0.8 10 ^3/uL (0.4-5.4); Lymphocytes % (auto) 12.6 % (10.0-50.0); Mean Corpuscular Hgb Conc. 33.3 g/dL (32.0-36.0); Mean Corpuscular Volume 93.3 fL (80.0-100.0); Monocytes # (auto) 0.7 10 ^3/uL (0-1.3); Monocytes % (auto) 11.8 % (0.0-12.0); Neutrophils % (auto) 67.5 % (37.0-80.0); Nucleated Red Blood Cells % 0.2 %; Platelet Count (auto) 226 10^3/uL (140-450); Red Blood Cells 3.72 10^6/uL (4.5-5.90); Red Cell Distribution Width 17.4 % (11.8-14.3)
[2020-10-11] MEDS: INSULIN LANTUS (GLARGINE) 1 /0.01ml (100units/ml) SC SCH ×2 (05:52→22:00)
[2020-10-11 06:10] LABS: Calcium 7.3 mg/dL (8.5-10.1)
[2020-10-11 06:13] LABS: BUN/Creatinine Ratio 17.2
[2020-10-11 06:35] LABS: Potassium 2.7 mmol/L (3.5-5.1)
[2020-10-11] MEDS ORDERED: POTASSIUM CHLORIDE 40 MEQ, LIDOCAINE 1% (LOCAL ANESTH.) 4 ML in SODIUM CHL 0.9% 250 ML IV ONE (07:15)
[2020-10-11 08:00] VITALS: BP 134/72
[2020-10-11] MEDS: CALCIUM ACETATE 667 MG CAP PO SCH ×3 (08:00→18:17)
[2020-10-11] MEDS: POTASSIUM CHL 20 Meq TABLET PO SCH (09:58)
[2020-10-11] MEDS: ZINC SULFATE 220mg CAP or TAB PO SCH (09:58)
[2020-10-11] MEDS: CARVEDILOL 12.5 MG TAB PO SCH ×2 (09:58→22:01)
[2020-10-11] MEDS: CHOLECALCIFEROL (VITD3) 2,000 UNIT CAP PO SCH (09:59)
[2020-10-11] MEDS: PANTOPRAZOLE 40 MG/10 ML VIAL INJ IV SCH ×2 (10:02→22:00)
[2020-10-11] MEDS ORDERED: POTASSIUM CHLORIDE 60 MEQ, LIDOCAINE 1% (LOCAL ANESTH.) 6 ML in SODIUM CHL 0.9% 500 ML IV ONE (11:00)
[2020-10-11] MEDS ORDERED: LIDOCAINE 1% IV ONE ×6 (11:15)
[2020-10-11] MEDS ORDERED: SODIUM CHL 0.9% IV ONE ×6 (11:15)
[2020-10-11] MEDS ORDERED: POTASSIUM CHLORIDE IV ONE ×6 (11:15)
[2020-10-11] MEDS: SODIUM FERR GLUC 125 MG in NS 100 ML IV SCH (15:34)
[2020-10-11 16:00] VITALS: BP 147/65
[2020-10-11] MEDS: MORPHINE SULF INJ 2 MG/ML SYRINGE 1ML IV PRN (18:20)
[2020-10-11] MEDS: AMINO ACID INFUSION IN D10W 1,000 ML IV NR (20:14)
[2020-10-11] MEDS ORDERED: BUMETANIDE 2.5mg/10ml (0.25 mg/ml) INJ IV ONE (20:30)
[2020-10-11] MEDS ORDERED: CLINIMIX PER PHARMACY 0 ML IV SCH (22:00)
[2020-10-11] MEDS: POTASSIUM EFFERVESENT TAB 25 MEQ PO SCH (22:01)
[2020-10-11 23:33] VITALS: BP 151/77
[2020-10-12] MEDS: PERITONEAL DIALYSIS 2.5% SOLN 2,000 ML IP SCH ×5 (02:00→20:50)
[2020-10-12 06:09] LABS: Albumin 1.6 g/dL (3.4-5.0); Calcium 7.1 mg/dL (8.5-10.1); Potassium 3.6 mmol/L (3.5-5.1)
[2020-10-12 06:13] LABS: BUN/Creatinine Ratio 16.4; Bilirubin, Total 1.2 mg/dL (0.2-1.0); Phosphorus 2.8 mg/dL (2.5-4.90); Total Protein 5.1 g/dL (6.4-8.2)
[2020-10-12] MEDS: BUMETANIDE 2.5mg/10ml (0.25 mg/ml) INJ IV SCH ×2 (06:13→16:52)
[2020-10-12] MEDS: ACCU-CHEK COMFORT CURVE STRIP VI SCH ×4 (06:20→17:02)
[2020-10-12] MEDS: InsuLIN REG 1unit/0.01ml Soln (100units/ml) SC SCH ×4 (06:20→17:02)
[2020-10-12] MEDS: INSULIN LANTUS (GLARGINE) 1 /0.01ml (100units/ml) SC SCH ×2 (06:21→22:00)
[2020-10-12 07:39] VITALS: BP 129/77
[2020-10-12] MEDS: POTASSIUM EFFERVESENT TAB 25 MEQ PO SCH ×2 (10:29→22:36)
[2020-10-12] MEDS: PANTOPRAZOLE 40 MG/10 ML VIAL INJ IV SCH ×2 (10:30→22:36)
[2020-10-12] MEDS: CALCIUM ACETATE 667 MG CAP PO SCH ×3 (10:30→18:00)
[2020-10-12] MEDS: ZINC SULFATE 220mg CAP or TAB PO SCH (10:31)
[2020-10-12] MEDS: CARVEDILOL 12.5 MG TAB PO SCH ×2 (10:32→22:00)
[2020-10-12] MEDS: CHOLECALCIFEROL (VITD3) 2,000 UNIT CAP PO SCH (10:33)
[2020-10-12] MEDS: SODIUM FERR GLUC 125 MG in NS 100 ML IV SCH (14:01)
[2020-10-12 16:17] VITALS: BP 93/60
[2020-10-12] MEDS: MORPHINE SULF INJ 2 MG/ML SYRINGE 1ML IV PRN (16:53)
[2020-10-12] MEDS ORDERED: AMINO ACID INFUSION IN D10W 1,000 ML IV NR (20:00)
[2020-10-12] MEDS: AMINO ACID INFUSION IN D10W 1,000 ML IV NR (20:26)
[2020-10-13] VITALS: BP 114/68
[2020-10-13] MEDS: InsuLIN REG 1unit/0.01ml Soln (100units/ml) SC SCH (00:30)
[2020-10-13] MEDS: ACCU-CHEK COMFORT CURVE STRIP VI SCH (00:31)
[2020-10-13] MEDS: PERITONEAL DIALYSIS 2.5% SOLN 2,000 ML IP SCH (00:50)
== END 2020-10-13 02:45 | disposition short-term general hospital (02) | DRG 870 ==
LOC: ER 03:40 → EDBD 03:40 → OVERFLOW 09:15 → ICU WEST 09-20 22:53 → TELE-EAST 10-08 14:29 → EAST 10-10 23:02 → TELE-EAST 10-13 01:40
PROVIDERS: ADMIT Internal Medicine; ATTEND Internal Medicine Nephrology
PROC: 5A1955Z Respiratory Ventilation, Greater than 96 Consecutive Hours (ICD-10-PCS; principal; 2020-09-17)
PROC: 0BH17EZ Insertion of Endotracheal Airway into Trachea, Via Natural or Artificial Opening (ICD-10-PCS; 2020-09-17)
PROC: 02HV33Z Insertion of Infusion Device into Superior Vena Cava, Percutaneous Approach (ICD-10-PCS; 2020-09-17)
PROC: 4A143B0 Monitoring of Venous Pressure, Central, Percutaneous Approach (ICD-10-PCS; 2020-09-17)
PROC: 5A09357 Assistance with Respiratory Ventilation, Less than 24 Consecutive Hours, Continuous Positive Airway Pressure (ICD-10-PCS; 2020-09-17)
PROC: XW13325 Transfusion of Convalescent Plasma (Nonautologous) into Peripheral Vein, Percutaneous Approach, New Technology Group 5 (ICD-10-PCS; 2020-09-20)
PROC: 3E1M39Z Irrigation of Peritoneal Cavity using Dialysate, Percutaneous Approach (ICD-10-PCS; 2020-09-22)
PROC: 30233N1 Transfusion of Nonautologous Red Blood Cells into Peripheral Vein, Percutaneous Approach (ICD-10-PCS; 2020-10-02)
DX: A41.89 Other specified sepsis (principal); J12.82 Pneumonia due to coronavirus disease 2019; R65.21 Severe sepsis with septic shock; U07.1 COVID-19; G93.41 Metabolic encephalopathy; E11.10 Type 2 diabetes mellitus with ketoacidosis without coma; J96.01 Acute respiratory failure with hypoxia; N18.6 End stage renal disease; E43 Unspecified severe protein-calorie malnutrition; E87.1 Hypo-osmolality and hyponatremia; N17.9 Acute kidney failure, unspecified; Z99.11 Dependence on respirator [ventilator] status; I12.0 Hypertensive chronic kidney disease with stage 5 chronic kidney disease or end stage renal disease; E66.9 Obesity, unspecified; B95.8 Unspecified staphylococcus as the cause of diseases classified elsewhere; D69.6 Thrombocytopenia, unspecified; R60.1 Generalized edema; E87.5 Hyperkalemia; E83.39 Other disorders of phosphorus metabolism; N30.90 Cystitis, unspecified without hematuria; D63.1 Anemia in chronic kidney disease; D50.0 Iron deficiency anemia secondary to blood loss (chronic); E11.22 Type 2 diabetes mellitus with diabetic chronic kidney disease; E87.6 Hypokalemia; Z99.2 Dependence on renal dialysis; Z68.39 Body mass index [BMI] 39.0-39.9, adult; Z89.431 Acquired absence of right foot; Z79.4 Long term (current) use of insulin
CPT/HCPCS: 31500; 36415; 36556; 36600; 51702; 71045; 76775; 80048; 80053; 80202; 81001; 82010; 82040; 82270; 82306; 82728; 82805; 82962; 83036; 83540; 83550; 83605; 83735; 83880; 84100; 84478; 84484; 85007; 85014; 85018; 85025; 85027; 85610; 85652; 85730; 86850; 86900; 86901; 86920; 87040; 87070; 87077; 87081; 87086; 87088; 87186; 87205; 87426; 89051; 92610; 93005; 93970; 94003; 94640; 94660; 96374; 96375; 97110; 97163; 97530; C9113; G0378; J0330; J0696; J0885; J1100; J1450; J1815; J1956; J2001; J2185; J2250; J3480; J3490; J7060